=== PATIENT | male | born 1970 | race Caucasian/White ===

== ENCOUNTER 2016-12-07 13:52 | Emergency (ER) | payer BC ==
[2016-12-07 15:19] VITALS: BP 122/80
[2016-12-07] MEDS ORDERED: Naproxen TAB* 250 MG PO ONE (15:57)
--- NOTE | 2016-12-07 16:06 | UC ---
Upper Extremity HPI - HPI Summary HPI Summary: 46 male presents with complaints of right shoulder pain that began 3 days ago after an injury of falling on outstretched hands forward. Patient has had limited ROM. Has not taken any medications or applied ice/heat. Denies numbness and tingling. Did not hit head, no other complaints or injuries. Already has some limited ROM due to scleroderma however has been much worse with right shoulder since injury. Patient denies edema and bruising. Patient is right handed. Denies chest pain and SOB. - History of Current Complaint Chief Complaint: UCUpperExtremity Stated Complaint: RIGHT SHOULDER INJURY/PAIN Time Seen by Provider: 12/07/16 15:37 Hx Obtained From: Patient Onset/Duration: Sudden Onset, Lasting Days - 3, Still Present Severity Initially: Mild Severity Currently: Mild Pain Intensity: 4 Pain Scale Used: 0-10 Numeric Location Of Pain: Is Discrete @ - right shoulder both anterior and posterior Character: Sharp, Aching Aggravating Factor(s): Movement Alleviating Factor(s): Nothing Associated Signs And Symptoms: Positive: Negative Related History: Dominant Hand Right - Allergies/Home Medications Allergies/Adverse Reactions: Allergies Allergy/AdvReac Type Severity Reaction Status Date / Time Hydrocortisone Allergy Swelling Verified 12/07/16 15:19 PMH/Surg Hx/FS Hx/Imm Hx - Additional Past Medical History Additional PMH: PMH significant for scleroderma Cardiovascular History: Hypertension - Surgical History Surgical History: Yes Surgery Procedure, Year, and Place: spleen removed, appy, left knee,back, left hand , right ankle - Family History Known Family History: Positive: Hypertension - Social History Alcohol Use: Weekly Substance Use Type: None Smoking Status (MU): Never Smoked Tobacco - Immunization History Vaccination Up to Date: Yes Review of Systems Constitutional: Negative Skin: Negative Respiratory: Negative Cardiovascular: Negative Neurovascular: Negative Musculoskeletal: Arthralgia, Decreased ROM - right shoulder, Myalgia Neurological: Negative All Other Systems Reviewed And Are Negative: Yes Physical Exam Triage Information Reviewed: Yes Appearance: Well-Appearing, No Pain Distress, Well-Nourished Vital Signs: Initial Vital Signs Temp 98.7 F 12/07/16 15:06 Pulse 104 12/07/16 15:06 Resp 16 12/07/16 15:06 BP 122/80 12/07/16 15:06 Pulse Ox 99 12/07/16 15:06 Vital Signs Reviewed: Yes Eyes: Positive: Conjunctiva Clear ENT: Positive: Hearing grossly normal Neck: Positive: Supple, Nontender Respiratory: Positive: Chest non-tender, Lungs clear, Normal breath sounds, No respiratory distress, No accessory muscle use. Negative: Respiratory distress, Decreased breath sounds, Crackles, Rhonchi, Wheezing Cardiovascular: Positive: RRR, No Murmur, Pulses Normal - 2+ radial b/l, Brisk Capillary Refill - >2sec Musculoskeletal: Positive: Strength Intact, No Edema, ROM Limited @ - with flexion/extension abduction/adduction. Has some ROM however not full. ~ 45degrees. better with passive ROM. No obvious signs of deformity, bruising, edema, crepitus or step off. Drop can test and yergasons postive Neurological: Positive: Alert - sensation intact, Muscle Tone Normal Psychological Exam: Normal Skin Exam: Normal Upper Extremity Course/Dx - Course Course Of Treatment: patient educated on shoulder pain and possible injuries/ etiologies. no concern for fracture or disclocation so no x-ray obtained. Acute injury. NSAID's and rest. Ice. Given sling for more comfort and naproxen while in office. Follow up with PCP. Aware of worsening signs and symptoms. - Differential Dx/Diagnosis Differential Diagnosis/HQI/PQRI: Arthritis, Strain, Sprain Provider Diagnoses: right shoulder pain/injury Discharge - Discharge Plan Condition: Stable Disposition: HOME Patient Education Materials: Shoulder Pain (ED) Additional Instructions: Take Aleve over the counter with food for the next 3 days as directed. Rest and ice shoulder. Make an appointment with your PCP for further imaging and evaluation within the next week. If symptoms worsen or new symptoms develop please seek medical attention promptly.
== END 2016-12-07 16:14 | disposition home or self-care (01) ==
LOC: UCCORT 13:52
DX: S49.91XA Unspecified injury of right shoulder and upper arm, initial encounter (principal); W19.XXXA Unspecified fall, initial encounter; Y93.9 Activity, unspecified; Y92.9 Unspecified place or not applicable; I10 Essential (primary) hypertension; M34.9 Systemic sclerosis, unspecified; Z90.81 Acquired absence of spleen
CPT/HCPCS: 99213; A9270-GY; G0463

== ENCOUNTER 2017-03-06 15:37 | Emergency (ER) | payer BC ==
--- NOTE | 2017-03-06 16:36 | UC ---
Skin Complaint HPI - HPI Summary HPI Summary: 5 cm red warm tender area on rle with scabbing in the center--- - History of Current Complaint Time Seen by Provider: 03/06/17 16:28 Stated Complaint: RIGHT LEG SKIN COMPLAINT Hx Obtained From: Patient Onset/Duration: Sudden Onset, Lasting Days Timing: Constant Onset Severity: Mild Current Severity: Moderate Location: Discrete Character: Redness Aggravating Factor(s): Nothing Alleviating Factor(s): Nothing Associated Signs & Symptoms: Positive: Negative Related History: Trauma - Allergy/Home Medications Allergies/Adverse Reactions: Allergies Allergy/AdvReac Type Severity Reaction Status Date / Time Hydrocortisone Allergy Swelling Verified 03/06/17 16:36 Home Medications: Home Medications Lisinopril TAB* [Prinivil TAB*] 10 mg PO DAILY 03/06/17 [History Confirmed 03/06] Review of Systems Constitutional: Negative Skin: Other - 5cm of erythema with center scabbing wound began after a walk in the [place] Eyes: Negative ENT: Negative Respiratory: Negative Cardiovascular: Negative Gastrointestinal: Negative Genitourinary: Negative Motor: Negative Neurovascular: Negative Musculoskeletal: Negative Neurological: Negative Psychological: Negative Is Patient Immunocompromised?: No All Other Systems Reviewed And Are Negative: Yes PMH/Surg Hx/FS Hx/Imm Hx Previously Healthy: Yes Cardiovascular History: Hypertension GI/ History: Gastroesophageal Reflux - Surgical History Surgical History: Yes Surgery Procedure, Year, and Place: spleen removed, appy, left knee,back, left hand , right ankle - Family History Known Family History: Positive: Hypertension - Social History Occupation: Employed Full-time Lives: With Family Alcohol Use: Weekly Substance Use Type: None Smoking Status (MU): Never Smoked Tobacco - Immunization History Vaccination Up to Date: Yes Physical Exam Triage Information Reviewed: Yes Appearance: Well-Appearing, No Pain Distress, Well-Nourished Vital Signs Reviewed: Yes Eye Exam: Normal Eyes: Positive: Conjunctiva Clear ENT Exam: Normal ENT: Positive: Normal ENT inspection, Hearing grossly normal. Negative: Nasal congestion, Nasal drainage, Trismus, Muffled/hoarse voice Dental Exam: Normal Neck exam: Normal Neck: Positive: Supple, Nontender, No Lymphadenopathy Respiratory Exam: Normal Respiratory: Positive: Chest non-tender, No respiratory distress, No accessory muscle use Cardiovascular Exam: Normal Cardiovascular: Positive: RRR, Pulses Normal, Brisk Capillary Refill Musculoskeletal Exam: Normal Musculoskeletal: Positive: Strength Intact, ROM Intact, No Edema Neurological Exam: Normal Neurological: Positive: Alert, Muscle Tone Normal Psychological Exam: Normal Skin: Positive: Other - erythema as described Course/Dx - Course Course Of Treatment: update tetanus, warm compress, antibiodic, follow with pcp prn - Differential Diagnoses - Skin Complaint Differential Diagnoses: Abscess, Cellulitis, Contact Dermatitis, Impetigo, Local Allergic Reaction - Diagnoses Provider Diagnoses: cellulitis RLE, Tetanus update Discharge - Discharge Plan Condition: Stable Disposition: HOME Prescriptions: Sulfamethox/Trimethoprim DS* [Bactrim DS 800/160 TAB*] 1 tab PO BID #20 tab Patient Education Materials: Diphtheria/Acellular Pertussis/Tetanus Booster Vaccine (By injection), Wound Infection (ED), Warm Compress or Soak (ED) Referrals: Celestino Phoenix MD [Primary Care Provider] - If Needed
[2017-03-06] MEDS ORDERED: Tetan/Diph/Pertus SYR(Tdap)* 0.5 ML SYR(BOOSTRIX) use SYR IM ONE (16:39)
[2017-03-06 16:41] VITALS: BP 115/83
== END 2017-03-06 16:51 | disposition home or self-care (01) ==
LOC: UCCORT 15:37
DX: L03.115 Cellulitis of right lower limb (principal); Z23 Encounter for immunization; I10 Essential (primary) hypertension; K21.9 Gastro-esophageal reflux disease without esophagitis; Z90.81 Acquired absence of spleen
CPT/HCPCS: 90471; 90715; 99212; G0463

== ENCOUNTER 2017-07-16 14:45 | Emergency (ER) | payer BC ==
[2017-07-16 17:12] VITALS: BP 106/86
--- NOTE | 2017-07-16 17:42 | UC ---
Ear Complaint HPI - HPI Summary HPI Summary: Pt presents with c/o bilateral ear discomfort. Pt states that he nhas over production of ear wax and is requesting ear wax removal at today's visit - History of Current Complaint Chief Complaint: UCEar Stated Complaint: BILATERAL EAR PAIN Time Seen by Provider: 07/16/17 16:52 Hx Obtained From: Patient Onset/Duration: Gradual Onset, Lasting Days, Still Present Severity Initially: Mild Severity Currently: Mild Pain Intensity: 0 Associated Signs/Symptoms: Positive: Hearing Loss, Foreign Body Sensation - Allergies/Home Medications Allergies/Adverse Reactions: Allergies Allergy/AdvReac Type Severity Reaction Status Date / Time Hydrocortisone Allergy Swelling Verified 07/16/17 17:12 PMH/Surg Hx/FS Hx/Imm Hx Previously Healthy: Yes - Surgical History Surgical History: Yes Surgery Procedure, Year, and Place: spleen removed, appy, left knee,back, left hand , right ankle - Family History Known Family History: Positive: Hypertension - Social History Occupation: Employed Full-time Lives: With Family Alcohol Use: Weekly Alcohol Amount: 2 times a week Substance Use Type: None Smoking Status (MU): Never Smoked Tobacco Have You Smoked in the Last Year: No - Immunization History Most Recent Influenza Vaccination: Not the 2016/2017 Season Most Recent Tetanus Shot: Unknown Vaccination Up to Date: Yes Review of Systems Constitutional: Negative Skin: Negative Eyes: Negative ENT: Ear Ache, Other - hearing loss Respiratory: Negative Cardiovascular: Negative Gastrointestinal: Negative Genitourinary: Negative Motor: Negative Neurovascular: Negative Musculoskeletal: Negative Neurological: Negative Psychological: Negative Is Patient Immunocompromised?: No All Other Systems Reviewed And Are Negative: Yes Physical Exam Triage Information Reviewed: Yes Appearance: Well-Appearing Vital Signs: Initial Vital Signs Temp 98.7 F 07/16/17 17:03 Pulse 89 07/16/17 17:03 Resp 16 07/16/17 17:03 BP 106/86 07/16/17 17:03 Pulse Ox 99 07/16/17 17:03 Vital Signs Reviewed: Yes Eye Exam: Normal ENT Exam: Other ENT: Positive: Other - cerumen bialteral ear canals Dental Exam: Normal Neck exam: Normal Respiratory: Positive: No respiratory distress Musculoskeletal Exam: Normal Neurological Exam: Normal Psychological Exam: Normal Skin Exam: Normal Ear Complaint Course/Dx - Differential Dx/Diagnosis Differential Diagnosis/HQI/PQRI: Cerumen Impaction Provider Diagnoses: cerumen impaction bilateral. cerumen removal Discharge - Discharge Plan Condition: Stable Disposition: HOME Patient Education Materials: Cerumen Impaction (ED) Referrals: Celestino Phoenix MD [Primary Care Provider] - If Needed
== END 2017-07-16 17:50 | disposition home or self-care (01) ==
LOC: UCCORT 14:45
DX: H61.23 Impacted cerumen, bilateral (principal); Z90.81 Acquired absence of spleen; Z88.8 Allergy status to other drugs, medicaments and biological substances
CPT/HCPCS: 99213; G0463

== ENCOUNTER 2017-09-01 13:25 | Inpatient (IN) | payer BC ==
--- NOTE | 2017-09-01 15:43 | RAD ---
INDICATION: Flank pain COMPARISON: July 17, 2014 TECHNIQUE: PA and lateral dual-energy views were obtained. FINDINGS: Bones/Soft Tissues: There are no acute bony findings. Cardiomediastinal: The cardiomediastinal silhouette is normal enlarged for depth of inspiration. Lungs: Examination is expiratory with vascular crowding. There is bibasilar atelectasis. Pleura: There are no pleural effusions. Other: None IMPRESSION: EXPIRATORY EXAMINATION WITH BASILAR ATELECTASIS. SUGGEST FOLLOW-UP IF THERE ARE PERSISTENT CHEST COMPLAINTS.
[2017-09-01 16:13] LABS: INR 1.18 (0.77-1.02)
[2017-09-01 16:32] LABS: ABS Basophils 0.1 10^3/ul (0-0.2); ABS Eosinophils 0 10^3/ul (0-0.6); ABS Lymphocytes 1.9 10^3/ul (1.0-4.8); ABS Monocytes 1.7 10^3/ul (0-0.8); ABS Nucleated RBC 0 10^3/ul; Eosinophil % 0.1 % (0-6); Hematocrit 43 % (42-52); Hemoglobin 14.1 g/dl (14.0-18.0); Lymphocyte % 11.6 % (25-47); Mean Corpuscular HGB Conc 33 g/dl (31-36); Mean Corpuscular Hemoglobin 26 pg (27-31); Mean Corpuscular Volume 78 fL (80-94); Mean Platelet Volume 10 um3 (7.4-10.4); Nucleated Red Blood Cells % 0.1; Platelet Count 317 10^3/ul (150-450); Red Blood Count 5.52 10^6/ul (4.0-5.4); Red Cell Distribution Width 17 % (10.5-15); White Blood Count 16.8 10^3/ul (3.5-10.8)
[2017-09-01 16:50] LABS: EGFR Non-African American 153.2 (>60)
[2017-09-01] MEDS ORDERED: Morphine INJ* 4 MG/ML 1 ML SYRINGE (NEW SYRINGE VERSION) IV ONE (16:50)
[2017-09-01] MEDS: NS 0.9% 1000 ML* 1,000 ML BOLUS ONE ×2 (17:20→18:52)
[2017-09-01] MEDS ORDERED: Iohexol 350* (CONTRAST) 500 ML MDV IV ONE (17:23)
--- NOTE | 2017-09-01 17:34 | RAD ---
Indication: RIGHT upper quadrant pain since August 31, 2017. Post splenectomy. Comparison: October 28, 2010 CT. Technique: RIGHT upper quadrant ultrasound. Report: Appropriate direction flow documented in the portal and hepatic veins. 21.2 cm liver is normal in echogenicity. Negative for focal hepatic lesions. Equivocal slight prominence of the intrahepatic bile ducts at the LEFT hepatic lobe. 3.2 mm common bile duct. Adequately distended gallbladder is remarkable for mild wall prominence measuring up to 4.1 mm. No conspicuous shadowing stones or biliary sludge at the gallbladder. Tenderness when scanning over the gallbladder fossa consistent with sonographic Mckeon's sign. The pancreatic tail is partially obscured due to bowel gas with the visualized pancreas unremarkable. Negative for ascites. 13.2 x 4.5 x 5.3 cm RIGHT kidney is unremarkable. IMPRESSION: 1. Hepatomegaly. 2. Equivocal slight prominence of the intrahepatic bile ducts at the LEFT hepatic lobe. Negative for extrahepatic biliary dilatation. 3. Mild gallbladder wall thickening without visualized stones or biliary sludge. Negative for pericholecystic fluid. Positive for sonographic Mckeon's sign. The gallbladder wall thickening is nonspecific in setting of hepatomegaly as it may reflect sequela of hepatic disease. 4. Negative for ascites. 5. Negative for obstructive uropathy of the RIGHT kidney.
--- NOTE | 2017-09-01 18:08 | RAD ---
INDICATION: RIGHT flank pain. Post foot surgery one week ago. Scleroderma. COMPARISON: September 01, 2017 chest radiograph TECHNIQUE: Multidetector CT images were obtained from the lung apices to the upper abdomen with 81 mL Omnipaque 350 IV contrast. Pulmonary angiogram protocol. Multiplanar reformation including with maximum intensity projection. REPORT: Limited range of motion with arms in down position results in suboptimal image quality. Additionally there is respiratory motion. Mild bibasilar dependent atelectasis. Negative for alveolar consolidation concerning for pneumonia or suspicious focal pulmonary lesions. Trace RIGHT pleural effusion. Negative for pneumothorax. RIGHT paratracheal, RIGHT suprahilar, AP window, and subcarinal lymphadenopathy. Dominant node at the RIGHT paratracheal level measures 1.5 cm short axis. RIGHT suprahilar node measures 1.7 cm short axis. Dominant subcarinal node measures 1.4 cm short axis. Cardiomegaly. Negative for pericardial effusion. Normal diameter thoracic aorta with mild atherosclerotic plaque. No filling defects are identified from the main to the subsegmental pulmonary arteries to indicate presence of a pulmonary embolism. Images through the upper abdomen are remarkable for diminutive size of the spleen. Negative for suspicious thoracic osseous lesions. Multilevel predominant mild thoracic degenerative spondylosis. At T9-T10 prominent RIGHT anterolateral osteophytes are noted. IMPRESSION: 1. Negative for pulmonary embolism. 2. Mediastinal and RIGHT hilar lymphadenopathy. 3. Mild bibasilar subsegmental atelectasis. Trace RIGHT pleural effusion. Negative for alveolar consolidation concerning for pneumonia or presence of a suspicious focal pulmonary lesion. 4. Cardiomegaly. Negative for pericardial effusion.
[2017-09-01 19:42] LABS: Urine Appearance Clear; Urine Blood Negative (Negative); Urine Color Yellow; Urine Ketones Trace (Negative); Urine Protein 2+(100 mg/dL) (Negative); Urine Specific Gravity 1.032 (1.010-1.030); Urine Urobilinogen Negative (Negative)
[2017-09-01] MEDS ORDERED: Acetaminophen TAB* 325 MG PO PRN (22:04)
[2017-09-01] MEDS ORDERED: CMCS: Melatonin (NF) 3 MG TAB PO PRN (22:04)
[2017-09-01] MEDS ORDERED: Ondansetron INJ* 2 MG/ML VIAL IV PRN (22:04)
[2017-09-01] MEDS ORDERED: Ciprofloxacin 400MG IVPREMIX(* 400 MG/200 ML BAG IVPB ONE (23:00)
[2017-09-01] MEDS: NS 0.9% 1000 ML* 1,000 ML IV SCH (23:02)
[2017-09-01] MEDS: oxyCODONE TAB* 5 MG TAB PO PRN (23:08)
--- NOTE | 2017-09-01 23:53 | HP ---
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 He was not improving by Monday evening and decided to present for evaluation. He denies F/C, sweats, N/V , diarrhea, chest pain, SOB, palpitations, or other issues. His last bowel movement was AM, describes as normal. He continues to pass flatus. Food neither alleviates or exacerbates his pain. He has no history of similar. He denies treatment with steroids within the past year. Of note he had his spleen removed as a child 2nd trauma and doesn't recall when his last pneumonia vaccine was. PMedHx scleraderma chronic leukocytosis HTN anemia traumatic asplenia GERD Ambulatory Orders Nursing to reconcile. 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 [place]; full code status FamHx: Mother: alive, HTN; Father: alive, prostate CA; Sister: alive, fibromyalgia ROS: as above, otherwise reviewed and all were negative vitals: Vital Signs Temp 37.4 C 09/01/17 23:30 Pulse 120 09/01/17 23:30 Resp 18 09/01/17 23:30 BP 132/87 09/01/17 23:30 Pulse Ox 92 09/01/17 23:30 Intake & Output 09/01/17 09/01/17 09/02/17 11:59 23:59 11:59 Intake Total 1000 Balance 1000 Weight 97.522 kg Intake: IV Fluids 1000 Constitutional: NAD, normally developed, obese white male HEENM: atraumatic; sclera/conjunctiva: anicteric/clear; hearing: clinically intact; oropharynx: clear, mucosa moist Neck: soft tissue: non-tender, no nuchal rigidity; thyroid: normal Pulmonary: clear to auscultation bilaterally, good aeration, no accessory muscle use CV: RR/RR, normal S1S2, no carotid bruit, no jugular venous distention, 2+ B DP/ PT, no edema Abdominal: soft, non-distended, non-tender, no rebound/guarding/rigidity, normoactive bowel sounds, no hepatosplenomegaly or masses, no costovertebral angle tenderness Musculoskeletal: general: grossly intact Integumental: no warmth, erythema, induration, or drainage noted of exposed skin Psychiatric orientation: AA&O to PPS affect: calm mood: cooperative eye contact: good content: reliable responses: timely insight: fair Testing: Lab Results 09/01/17 09/01/17 09/01/17 Range/Units 15:47 15:47 15:47 WBC (3.5-10.8) 10^3/ul RBC (4.0-5.4) 10^6/ul Hgb (14.0-18.0) g/dl Hct (42-52) % MCV (80-94) fL MCH (27-31) pg MCHC (31-36) g/dl RDW (10.5-15) % Plt Count (150-450) 10^3/ul MPV (7.4-10.4) um3 Neut % (Auto) (38-83) % Lymph % (Auto) (25-47) % [place] % (Auto) (0-7) % Eos % (Auto) (0-6) % Baso % (Auto) (0-2) % Absolute Neuts (auto) (1.5-7.7) 10^3/ul Absolute Lymphs (auto) (1.0-4.8) 10^3/ul Absolute Monos (auto) (0-0.8) 10^3/ul Absolute Eos (auto) (0-0.6) 10^3/ul Absolute Basos (auto) (0-0.2) 10^3/ul Absolute Nucleated RBC 10^3/ul Nucleated RBC % INR (Anticoag Therapy) 1.18 H (0.77-1.02) D-Dimer, Quantitative 791 H (Less Than 230) ng/mL Sodium 134 (133-145) mmol/L Potassium 4.3 (3.5-5.0) mmol/L Chloride 103 (101-111) mmol/L Carbon Dioxide 19 L (22-32) mmol/L Anion Gap 12 H (2-11) mmol/L BUN 11 (6-24) mg/dL Creatinine 0.57 L (0.67-1.17) mg/dL Est GFR ( Amer) 197.1 (>60) Est GFR (Non-Af Amer) 153.2 (>60) BUN/Creatinine Ratio 19.3 (8-20) Glucose 93 (70-100) mg/dL Calcium 9.9 (8.6-10.3) mg/dL Magnesium 1.8 L (1.9-2.7) mg/dL Total Bilirubin 1.60 H (0.2-1.0) mg/dL AST 24 (13-39) U/L ALT 15 (7-52) U/L Alkaline Phosphatase 154 H (34-104) U/L Troponin I 0.03 (<0.04) ng/mL C-Reactive Protein 28.57 H (< 5.00) mg/L B-Natriuretic Peptide 271 H ( - 100) pg/mL Total Protein 8.1 (6.4-8.9) g/dL Albumin 4.3 (3.2-5.2) g/dL Globulin 3.8 (2-4) g/dL Albumin/Globulin Ratio 1.1 (1-3) Amylase 24 L (29-103) U/L Lipase 30 (11.0-82.0) U/L Urine Color Urine Appearance Urine pH (5-9) Ur Specific [place] (1.010-1.030) Urine Protein (Negative) Urine Ketones (Negative) Urine Blood (Negative) Urine Nitrate (Negative) Urine Bilirubin (Negative) Urine Urobilinogen (Negative) Ur Leukocyte Esterase (Negative) Urine WBC (Auto) (Absent) Urine RBC (Auto) (Absent) Urine Bacteria (Absent) Urine Glucose (Negative) 09/01/17 09/01/17 09/01/17 Range/Units 15:47 18:17 18:55 WBC 16.8 H (3.5-10.8) 10^3/ul RBC 5.52 H (4.0-5.4) 10^6/ul Hgb 14.1 (14.0-18.0) g/dl Hct 43 (42-52) % MCV 78 L (80-94) fL MCH 26 L (27-31) pg MCHC 33 (31-36) g/dl RDW 17 H (10.5-15) % Plt Count 317 (150-450) 10^3/ul MPV 10 (7.4-10.4) um3 Neut % (Auto) 77.8 (38-83) % Lymph % (Auto) 11.6 L (25-47) % [place] % (Auto) 9.9 H (0-7) % Eos % (Auto) 0.1 (0-6) % Baso % (Auto) 0.6 (0-2) % Absolute Neuts (auto) 13.0 H (1.5-7.7) 10^3/ul Absolute Lymphs (auto) 1.9 (1.0-4.8) 10^3/ul Absolute Monos (auto) 1.7 H (0-0.8) 10^3/ul Absolute Eos (auto) 0 (0-0.6) 10^3/ul Absolute Basos (auto) 0.1 (0-0.2) 10^3/ul Absolute Nucleated RBC 0 10^3/ul Nucleated RBC % 0.1 INR (Anticoag Therapy) (0.77-1.02) D-Dimer, Quantitative (Less Than 230) ng/mL Sodium (133-145) mmol/L Potassium (3.5-5.0) mmol/L Chloride (101-111) mmol/L Carbon Dioxide (22-32) mmol/L Anion Gap (2-11) mmol/L BUN (6-24) mg/dL Creatinine (0.67-1.17) mg/dL Est GFR ( Amer) (>60) Est GFR (Non-Af Amer) (>60) BUN/Creatinine Ratio (8-20) Glucose (70-100) mg/dL Calcium (8.6-10.3) mg/dL Magnesium (1.9-2.7) mg/dL Total Bilirubin (0.2-1.0) mg/dL AST (13-39) U/L ALT (7-52) U/L Alkaline Phosphatase (34-104) U/L Troponin I 0.03 (<0.04) ng/mL C-Reactive Protein (< 5.00) mg/L B-Natriuretic Peptide ( - 100) pg/mL Total Protein (6.4-8.9) g/dL Albumin (3.2-5.2) g/dL Globulin (2-4) g/dL Albumin/Globulin Ratio (1-3) Amylase (29-103) U/L Lipase (11.0-82.0) U/L Urine Color Yellow Urine Appearance Clear Urine pH 5.0 (5-9) Ur Specific [place] 1.032 H (1.010-1.030) Urine Protein 2+(100 mg/dl) A (Negative) Urine Ketones Trace A (Negative) Urine Blood Negative (Negative) Urine Nitrate Negative (Negative) Urine Bilirubin Negative (Negative) Urine Urobilinogen Negative (Negative) Ur Leukocyte Esterase Negative (Negative) Urine WBC (Auto) Trace(0-5/hpf) (Absent) Urine RBC (Auto) Absent (Absent) Urine Bacteria Absent (Absent) Urine Glucose Negative (Negative) 09/01/17 Range/Units 21:08 WBC (3.5-10.8) 10^3/ul RBC (4.0-5.4) 10^6/ul Hgb (14.0-18.0) g/dl Hct (42-52) % MCV (80-94) fL MCH (27-31) pg MCHC (31-36) g/dl RDW (10.5-15) % Plt Count (150-450) 10^3/ul MPV (7.4-10.4) um3 Neut % (Auto) (38-83) % Lymph % (Auto) (25-47) % [place] % (Auto) (0-7) % Eos % (Auto) (0-6) % Baso % (Auto) (0-2) % Absolute Neuts (auto) (1.5-7.7) 10^3/ul Absolute Lymphs (auto) (1.0-4.8) 10^3/ul Absolute Monos (auto) (0-0.8) 10^3/ul Absolute Eos (auto) (0-0.6) 10^3/ul Absolute Basos (auto) (0-0.2) 10^3/ul Absolute Nucleated RBC 10^3/ul Nucleated RBC % INR (Anticoag Therapy) (0.77-1.02) D-Dimer, Quantitative (Less Than 230) ng/mL Sodium (133-145) mmol/L Potassium (3.5-5.0) mmol/L Chloride (101-111) mmol/L Carbon Dioxide (22-32) mmol/L Anion Gap (2-11) mmol/L BUN (6-24) mg/dL Creatinine (0.67-1.17) mg/dL Est GFR ( Amer) (>60) Est GFR (Non-Af Amer) (>60) BUN/Creatinine Ratio (8-20) Glucose (70-100) mg/dL Calcium (8.6-10.3) mg/dL Magnesium (1.9-2.7) mg/dL Total Bilirubin (0.2-1.0) mg/dL AST (13-39) U/L ALT (7-52) U/L Alkaline Phosphatase (34-104) U/L Troponin I 0.03 (<0.04) ng/mL C-Reactive Protein (< 5.00) mg/L B-Natriuretic Peptide ( - 100) pg/mL Total Protein (6.4-8.9) g/dL Albumin (3.2-5.2) g/dL Globulin (2-4) g/dL Albumin/Globulin Ratio (1-3) Amylase (29-103) U/L Lipase (11.0-82.0) U/L Urine Color Urine Appearance Urine pH (5-9) Ur Specific [place] (1.010-1.030) Urine Protein (Negative) Urine Ketones (Negative) Urine Blood (Negative) Urine Nitrate (Negative) Urine Bilirubin (Negative) Urine Urobilinogen (Negative) Ur Leukocyte Esterase (Negative) Urine WBC (Auto) (Absent) Urine RBC (Auto) (Absent) Urine Bacteria (Absent) Urine Glucose (Negative) ECG, personally reviewed: sinus 1st degree AV LBBB rate 122, occasional PVCs; no comparison CXR, personally reviewed: IMPRESSION: EXPIRATORY EXAMINATION WITH BASILAR ATELECTASIS. SUGGEST FOLLOW-UP IF THERE ARE PERSISTENT CHEST COMPLAINTS. CTA chest, personally reviewed: IMPRESSION: 1. Negative for pulmonary embolism. 2. Mediastinal and RIGHT hilar lymphadenopathy. 3. Mild bibasilar subsegmental atelectasis. Trace RIGHT pleural effusion. Negative for alveolar consolidation concerning for pneumonia or presence of a suspicious focal pulmonary lesion. 4. Cardiomegaly. Negative for pericardial effusion. US RUQ: IMPRESSION: 1. Hepatomegaly. 2. Equivocal slight prominence of the intrahepatic bile ducts at the LEFT hepatic lobe. Negative for extrahepatic biliary dilatation. 3. Mild gallbladder wall thickening without visualized stones or biliary sludge. Negative for perichole- cystic fluid. Positive for sonographic Mckeon's sign. The gallbladder wall thickening is non- specific in setting of hepatomegaly as it may reflect sequela of hepatic disease. 4. Negative for ascites. 5. Negative for obstructive uropathy of the RIGHT kidney. Impression: 47M HX active alcohol abuse presents with RUQ pain found to have ? acalculus cholecystitis and unexplained mediastinal & R hilar adenopathy DIAGNOSIS & PLAN Primary SIRS w/ RUQ pain ? acalculus cholecystitis : no steroid use w/i the past year : IV ciprofloxacin & metronidazole : blood CXs : IVFs : pain control : Suhas Salazar MD surgery consulted, will evaluate in AM : supportive care mediastinal & R hilar lyphadenopathy ? 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
[2017-09-02] MEDS: Pantoprazole IV* 40 MG IV SCH ×2 (00:48→09:51)
[2017-09-02] MEDS: metroNIDAZOLE IV 500 MG/100ML* 500 MG/100 ML BAG IVPB SCH ×3 (00:48→16:48)
[2017-09-02] MEDS ORDERED: Thiamine IV* 100 MG/ML 2 ML VIAL IM ONE (00:49)
[2017-09-02] MEDS ORDERED: LORazepam INJ* 2 MG/ML 1 ML VIAL IV PUSH SCH (01:00)
[2017-09-02] MEDS: NS 0.9% 1000 ML* 1,000 ML IV SCH ×4 (02:16→23:47)
--- NOTE | 2017-09-02 02:46 | ED ---
Rocio Millard Jason, scribed for Saba Friend MD on 09/01/17 at 1642 . Abdominal Pain/Male - HPI Summary HPI Summary: This patient is a 47 year old M presenting to [facility] accompanied by parents with a chief complaint of right upper quadrant pain and right flank pain for 3 days. The patient states that his pain intensifies when he breathes. He includes that he underwent left foot surgery 08/24/17 for scler[address] complications by Dr. Olea from [facility]. While Dr. Friend was in the room, the patients heart rate was 124 bpm, blood pressure was 117/85, and the O2 Sat was 96%. The patient rates the pain 9/10 in severity. Symptoms aggravated by nothing. Symptoms alleviated by nothing. Patient denies painful urination, hematuria, or hx kidney stones. Pt has hx scleroderma, sees Dr. Gwyn Cooper, cutter tender in [place]. Pt is s/p splenectomy due to trauma as a child. Pt still has his gallbladder, and does not recall having it evaluated in the past. - History of Current Complaint Chief Complaint: EDFlankPain Stated Complaint: FLANK PAIN Time Seen by Provider: 09/01/17 15:12 Hx Obtained From: Patient, Family/Italian Tutor - parents Onset/Duration: Gradual Onset, Lasting Days, Still Present Timing: Constant Severity Initially: Severe Severity Currently: Severe Pain Intensity: 9 Pain Scale Used: 0-10 Numeric Location: Discrete At: RUQ Radiates: Yes Radiates to: Flank - right Character: Sharp Aggravating Factor(s): Deep Breaths Alleviating Factor(s): Nothing Associated Signs And Symptoms: Negative: Fever, Cough, Chest Pain, Urinary Symptoms, Nausea, Vomiting - Allergies/Home Medications Allergies/Adverse Reactions: Allergies Allergy/AdvReac Type Severity Reaction Status Date / Time hydrocortisone Allergy Swelling Verified 09/01/17 13:27 Sulfa (Sulfonamide Allergy Rash Verified 09/01/17 13:28 Antibiotics) Home Medications: Home Medications HYDROcodone/ACETAMIN 5-325 MG* [[place]ffie 5-325 TAB*] 1 tab PO Q4H PRN 09/01/17 [ History Confirmed 09/02/17] Omeprazole CAP* [Prilosec CAP* 20 MG] 20 mg PO DAILY 09/01/17 [History Confirmed 09/02/17] PMH/Surg Hx/FS Hx/Imm Hx Previously Healthy: No Endocrine/Hematology History: Reports: Autoimmune Disease - Scleroderma Cardiovascular History: Reports: Hx Hypertension Denies: Hx Congestive Heart Failure, Hx Pacemaker/ICD, Other Cardiovascular Problems/Disorders Respiratory History: Reports: Hx Asthma Denies: Other Respiratory Problems/Disorders GI History: Denies: Other GI Disorders - Surgical History Surgery Procedure, Year, and Place: splenectomy, appy, left knee, back, left hand , right ankle, left foot Infectious Disease History: No Infectious Disease History: Denies: Traveled Outside the [place] in Last 30 Days - Family History Known Family History: Positive: Hypertension - Social History Occupation: Employed Full-time Lives: With Family Alcohol Use: Daily Substance Use Type: Reports: None Smoking Status (MU): Never Smoked Tobacco Have You Smoked in the Last Year: No Review of Systems Negative: Fever Cardiovascular: Negative Respiratory: Negative Positive: Abdominal Pain - RUQ pain, Right flank pain Genitourinary: Negative Positive: no symptoms reported Positive: Other - left foot surgery Positive: Rash - chronic on his face, pt attributes it to scleroderma Neurological: Negative Psychological: Normal All Other Systems Reviewed And Are Negative: Yes Physical Exam - Summary Physical Exam Summary: Appearance: Ill-appearing, moderate pain distress, Well-nourished, tachycardic, afebrile Skin: Warm, diffuse erythematous macular lesions on face, contracted skin on hands Head: Diffuse erythematous macular lesions on face. Eyes: Conjunctiva clear ENT: Normal inspection Neck: Supple, no nodes, no JVD. Respiratory: Lungs clear, Diminished breath sounds, no respiratory distress, no wheezes Cardio: RRR, No murmur, pulses normal, brisk capillary refill Abdomen: soft, RUQ pain with a positive [place] sign, no masses, no guarding, no rebound Bowel sounds: present Musculoskeletal: Strength Intact/ ROM intact. No calf tenderness. No edema. Contractures of extremities. Boot on left foot with dressing post surgical that wasnt unwrapped in the ED. Psychological: Normal Triage Information Reviewed: Yes Vital Signs On Initial Exam: Initial Vitals Temp Pulse Resp BP Pulse Ox 98.6 F 121 18 113/83 93 09/01/17 13:28 09/01/17 13:28 09/01/17 13:28 09/01/17 13:28 09/01/17 13:28 Vital Signs Reviewed: Yes Diagnostics - Vital Signs Vital Signs Temp Pulse Resp BP Pulse Ox 09/01/17 16:13 95 09/01/17 16:00 125 25 96 09/01/17 15:36 122 25 96 09/01/17 15:33 123/81 09/01/17 15:27 120 22 96 09/01/17 15:00 121 22 107/73 97 09/01/17 14:56 161 22 88 09/01/17 14:53 114/82 09/01/17 13:28 98.6 F 121 18 113/83 93 - Laboratory Lab Results: Lab Results 09/01/17 09/01/17 09/01/17 Range/Units 15:47 15:47 15:47 WBC (3.5-10.8) 10^3/ul RBC (4.0-5.4) 10^6/ul Hgb (14.0-18.0) g/dl Hct (42-52) % MCV (80-94) fL MCH (27-31) pg MCHC (31-36) g/dl RDW (10.5-15) % Plt Count (150-450) 10^3/ul MPV (7.4-10.4) um3 Neut % (Auto) (38-83) % Lymph % (Auto) (25-47) % [place] % (Auto) (0-7) % Eos % (Auto) (0-6) % Baso % (Auto) (0-2) % Absolute Neuts (auto) (1.5-7.7) 10^3/ul Absolute Lymphs (auto) (1.0-4.8) 10^3/ul Absolute Monos (auto) (0-0.8) 10^3/ul Absolute Eos (auto) (0-0.6) 10^3/ul Absolute Basos (auto) (0-0.2) 10^3/ul Absolute Nucleated RBC 10^3/ul Nucleated RBC % INR (Anticoag Therapy) 1.18 H (0.77-1.02) D-Dimer, Quantitative 791 H (Less Than 230) ng/mL Magnesium 1.8 L (1.9-2.7) mg/dL Troponin I 0.03 (<0.04) ng/mL C-Reactive Protein 28.57 H (< 5.00) mg/L B-Natriuretic Peptide 271 H ( - 100) pg/mL Amylase 24 L (29-103) U/L Lipase 30 (11.0-82.0) U/L 09/01/17 Range/Units 15:47 WBC 16.8 H (3.5-10.8) 10^3/ul RBC 5.52 H (4.0-5.4) 10^6/ul Hgb 14.1 (14.0-18.0) g/dl Hct 43 (42-52) % MCV 78 L (80-94) fL MCH 26 L (27-31) pg MCHC 33 (31-36) g/dl RDW 17 H (10.5-15) % Plt Count 317 (150-450) 10^3/ul MPV 10 (7.4-10.4) um3 Neut % (Auto) 77.8 (38-83) % Lymph % (Auto) 11.6 L (25-47) % [place] % (Auto) 9.9 H (0-7) % Eos % (Auto) 0.1 (0-6) % Baso % (Auto) 0.6 (0-2) % Absolute Neuts (auto) 13.0 H (1.5-7.7) 10^3/ul Absolute Lymphs (auto) 1.9 (1.0-4.8) 10^3/ul Absolute Monos (auto) 1.7 H (0-0.8) 10^3/ul Absolute Eos (auto) 0 (0-0.6) 10^3/ul Absolute Basos (auto) 0.1 (0-0.2) 10^3/ul Absolute Nucleated RBC 0 10^3/ul Nucleated RBC % 0.1 INR (Anticoag Therapy) (0.77-1.02) D-Dimer, Quantitative (Less Than 230) ng/mL Magnesium (1.9-2.7) mg/dL Troponin I (<0.04) ng/mL C-Reactive Protein (< 5.00) mg/L B-Natriuretic Peptide ( - 100) pg/mL Amylase (29-103) U/L Lipase (11.0-82.0) U/L Result Diagrams: 09/01/17 15:47 09/01/17 15:47 Lab Statement: Any lab studies that have been ordered have been reviewed, and results considered in the medical decision making process. - Radiology CXR Radiology Interpretation Completed By: Radiologist - CXR reveals, per radiologist, EXPIRATORY EXAMINATION WITH BASILAR ATELECTASIS. SUGGEST FOLLOW-UP IF THERE ARE PERSISTENT CHEST COMPLAINTS. ED physician has reviewed this radiology report. - CT Chest/Thorax CT Interpretation Completed By: Radiologist - Chest/Thorax CTA reveals, per radiologist, 1. Negative for pulmonary embolism. 2. Mediastinal and RIGHT hilar lymphadenopathy. 3. Mild bibasilar subsegmental atelectasis. Trace RIGHT pleural effusion. Negative for alveolar consolidation concerning for pneumonia or presence of a suspicious focal pulmonary lesion. 4. Cardiomegaly. Negative for pericardial effusion. ED physician has reviewed this radiology report. - EKG 1534 Cardiac Rate: Tachycardia EKG Rhythm: Sinus Tachycardia - [address] Segment: Non-Specific Ectopy: None EKG Interpretation: normal AVCT, prolonged IVCT with LBBB, normal QTc and left axis -54. EKG Comparison: Other - no prior to compare. - Additional Comments Diagnostic Additional Comments: Gallbladder Ultrasound reveals, per radiologist, 1. Hepatomegaly. 2. Equivocal slight prominence of the intrahepatic bile ducts at the LEFT hepatic lobe. Negative for extrahepatic biliary dilatation. 3. Mild gallbladder wall thickening without visualized stones or biliary sludge. Negative for pericholecystic fluid. Positive for sonographic Mckeon's sign. The gallbladder wall thickening is nonspecific in setting of hepatomegaly as it may reflect sequela of hepatic disease. 4. Negative for ascites. 5. Negative for obstructive uropathy of the RIGHT kidney. ED physician has reviewed this radiology report. Re-Evaluation - Re-Evaluation First Eval Re-Evaluation Time: 17:18 Change: Improved Comment: Pt condition is improved, Pain scale is at a 5/10 after morphine. Still tachycardic, fluids infusing. GB sono completed. Awaiting CTA chest. Second Eval Re-Evaluation Time: 20:30 Change: Unchanged Comment: Pain is returning. Still with +Mckeon's sign. No vomiting or fever in the ED. Discussed results of labs, US and CTA chest. Parents present with pt. Pt remains tachycardic. Pt states Dr. Cooper has followed him for elevated wbc count for quite awhile. Last wbc count he knew was 11. Pt has also seen Dr. Hines and had bone marrow evaluations. Abdominal Pain Fem Course/Dx - Course Course Of Treatment: In the ED course the patient was given IV fluids, morphine 4mg IV for pain was NPO. Pt medications reviewed this visit. Allergies noted. AT [address] Lang who recommends consult with Dr. Salazar with thickened GB chris, elevated wbc count, tachycardia, despite no gallstones or sludge. At [address] Salazar, who recommended medical admission and believies the condition is possibly acalculous cholecystitis which should be treated with antibiotics first, Cipro and Flagyl after blood cultures obtained. Pt will be admitted to medicine and surgery will consult. Assessment/Plan: Discussed results with patient. Patient will be admitted. Patient is agreeable with this plan. - Diagnoses Differential Diagnosis/HQI/PQRI: Gall Bladder Disease, Hepatitis, Pancreatitis, Pneumonia, Renal Colic, Ureteral Stone, Other - pulmonary embolus Provider Diagnoses: Right flank pain, Tachycardia, mediastinal and hilar adenopathy, Right upper quadrant pain, Scleroderma, Status post left foot surgery, SIRS (systemic inflammatory response syndrome) - Provider Notifications Discussed Care Of Patient With: Edwin Salazar Time Discussed With Above Provider: 21:00 - will consult Discharge - Discharge Plan Condition: Stable Disposition: ADMITTED TO [facility] documentation as recorded by the Rocio cain Jason accurately reflects the service I personally performed and the decisions made by , Saba Friend MD.
[2017-09-02] MEDS: oxyCODONE TAB* 5 MG TAB PO PRN ×3 (03:27→23:46)
[2017-09-02 05:45] LABS: ABS Basophils 0.1 10^3/ul (0-0.2); ABS Eosinophils 0.1 10^3/ul (0-0.6); ABS Lymphocytes 2.3 10^3/ul (1.0-4.8); ABS Monocytes 1.5 10^3/ul (0-0.8); ABS Neutrophils 7.8 10^3/ul (1.5-7.7); ABS Nucleated RBC 0 10^3/ul; Eosinophil % 0.9 % (0-6); Hematocrit 40 % (42-52); Lymphocyte % 19.4 % (25-47); Mean Corpuscular HGB Conc 32 g/dl (31-36); Mean Corpuscular Hemoglobin 26 pg (27-31); Mean Corpuscular Volume 79 fL (80-94); Mean Platelet Volume 9 um3 (7.4-10.4); Nucleated Red Blood Cells % 0; Platelet Count 270 10^3/ul (150-450); Red Blood Count 5.09 10^6/ul (4.0-5.4); Red Cell Distribution Width 18 % (10.5-15); White Blood Count 11.8 10^3/ul (3.5-10.8)
[2017-09-02 06:02] LABS: EGFR Non-African American 144.4 (>60)
[2017-09-02] MEDS: Folic Acid TAB* 1 MG PO SCH (09:02)
[2017-09-02] MEDS: Multivitamins/Minerals TAB PO SCH (09:02)
[2017-09-02] MEDS: Docusate CAP* 100 MG PO SCH ×2 (09:02→21:38)
[2017-09-02] MEDS: Thiamine TAB* 100 MG TAB PO SCH (09:03)
--- NOTE | 2017-09-02 11:05 | PN ---
Subjective Date of Service: 09/02/17 Interval History: Patient seen and examined at bedside. Denies fever, chills, shortness of breath , chest discomfort, N/V/D. Pt states that he continues to have a right flank discomfort. Family History: Unchanged from Admission Social History: Unchanged from Admission Past Medical History: Unchanged from Admission Objective Active Medications: Acetaminophen (Tylenol Tab*) 650 mg PO Q6H PRN Reason: FEVER/PAIN Docusate Sodium (Colace Cap*) 200 mg PO BID NATALIE Folic Acid (Folvite Tab*) 1 mg PO DAILY NATALIE Hydromorphone HCl (Dilaudid Inj*) 0.5 mg IV Q4H PRN Reason: PAIN Ciprofloxacin 400 mg/ Dextrose 200 mls @ 200 mls/hr IVPB Q12H NATALIE Metronidazole/Sodium Chloride (Flagyl 500 Mg Ivpb*) 500 mg in 100 mls @ 100 mls /hr IVPB Q8H NATALIE Sodium Chloride (Ns 0.9% 1000 Ml*) 1,000 mls @ 125 mls/hr IV PER RATE NATALIE Lorazepam (Ativan Inj*) 0 - 6 mg IV PUSH .PER [facility]OL [facility] Melatonin (Melatonin (Nf)) 3 mg PO BEDTIME PRN; Protocol Reason: Sleep Multivitamins/Minerals (Theragran/Minerals Tab*) 1 tab PO DAILY NATALIE Ondansetron HCl (Zofran Inj*) 4 mg IV Q6H PRN Reason: NAUSEA Oxycodone HCl (Roxycodone Tab*) 5 mg PO Q4H PRN Reason: PAIN Pantoprazole Sodium (Protonix Iv*) 40 mg IV DAILY [facility] Thiamine HCl (Vitamin B-1 Tab*) 100 mg PO DAILY [facility] Vital Signs - 8 hr 09/02/17 09/02/17 09/02/17 03:23 03:27 04:53 Temperature 98.4 F Pulse Rate 102 97 Respiratory 20 20 Rate Blood Pressure 122/90 116/86 (mmHg) O2 Sat by Pulse 95 93 Oximetry 09/02/17 09/02/17 09/02/17 06:13 08:06 08:56 Temperature 97.9 F Pulse Rate 95 Respiratory 18 18 18 Rate Blood Pressure 128/86 (mmHg) O2 Sat by Pulse 93 Oximetry Oxygen Devices in Use Now: None Appearance: NAD, sitting up on the side of the bed Ears/Nose/Mouth/Throat: Mucous Membranes Moist Respiratory: Symmetrical Chest Expansion and Respiratory Effort, Clear to Auscultation Cardiovascular: NL Sounds; No Murmurs; No JVD, RRR Abdominal: NL Sounds; No Tenderness; No Distention, - - Tenderness to right flank Extremities: No Edema Skin: - - Splin to left LE intact Neurological: Alert and Oriented x 3, NL Muscle Strength and Tone Lines/Tubes/Other Access: Clean, Dry and Intact Peripheral IV - site benign Nutrition: Taking PO's Result Diagrams: 09/02/17 05:26 09/02/17 05:26 Additional Lab and Data: Diagnostic Imagin09/01/17 - CHEST PA & LAT 2 VWS, IMPRESSION: EXPIRATORY EXAMINATION WITH BASILAR ATELECTASIS. SUGGEST FOLLOW-UP IF THERE ARE PERSISTENT CHEST COMPLAINTS. 09/01/17 - US GALL BLADDER, IMPRESSION: 1. Hepatomegaly. 2. Equivocal slight prominence of the intrahepatic bile ducts at the LEFT hepatic lobe. Negative for extrahepatic biliary dilatation. 3. Mild gallbladder wall thickening without visualized stones or biliary sludge. Negative for pericholecystic fluid. Positive for sonographic Mckeon's sign. The gallbladder wall thickening is nonspecific in setting of hepatomegaly as it may reflect sequela of hepatic disease. 4. Negative for ascites. 5. Negative for obstructive uropathy of the RIGHT kidney. 09/01/17 - CTA CHEST, IMPRESSION: 1. Negative for pulmonary embolism. 2. Mediastinal and RIGHT hilar lymphadenopathy. 3. Mild bibasilar subsegmental atelectasis. Trace RIGHT pleural effusion. Negative for alveolar consolidation concerning for pneumonia or presence of a suspicious focal pulmonary lesion. 4. Cardiomegaly. Negative for pericardial effusion. Assess/Plan/Problems-Billing Assessment: Mr. Rehman is a 47 yo male with PMH significant for scleraderma, chronic leukocytosis, HTN, anemia, GERD, s/p splenectomy, and ETOH abuse who presented to the emergency room with complaints of right upper abdominal pain. - Patient Problems (1) RUQ abdominal pain Code(s): R10.11 - RIGHT UPPER QUADRANT PAIN SNOMED Code(s): 316687827 Comment: - Meeting SIRS criteria on admission with tachycardia, leukocytosis, tachypnea - Continues to have tachycardia and leukocytosis. Tachypnea has resolved - Afebrile - General Surgery consut, input appreciated - HIDA scan, read pending - Blood cultures pending - Suspect possible acalculus cholecystitis - Continue Cipro and Flagyl, supportive care, IVFs and pain medication (2) Mediastinal lymphadenopathy Code(s): R59.0 - LOCALIZED ENLARGED LYMPH NODES SNOMED Code(s): 85577506 Comment: - Unclear etiology, ? neoplasm vs infection - Will need to follow up with PCP at discharge (3) Atelectasis Comment: - Encourage IS use (4) Alcohol abuse Code(s): F10.10 - ALCOHOL ABUSE, UNCOMPLICATED SNOMED Code(s): 92333057 Comment: - WAM score 1-2 - Continue WAM protocol for now (5) Leukocytosis Code(s): D72.829 - ELEVATED WHITE BLOOD CELL COUNT, UNSPECIFIED SNOMED Code(s) : 562762852 Comment: - Chronic - Continue to monitor (6) HTN (hypertension) Code(s): I10 - ESSENTIAL (PRIMARY) HYPERTENSION SNOMED Code(s): 83088552 Comment: - SBP 110-130's - Continue Lisinopril (7) GERD (gastroesophageal reflux disease) Code(s): K21.9 - GASTRO-ESOPHAGEAL REFLUX DISEASE WITHOUT ESOPHAGITIS SNOMED Code(s): 406200355 Comment: - Continue omeprazole (8) Hx of splenectomy Code(s): Z90.81 - ACQUIRED ABSENCE OF SPLEEN SNOMED Code(s): 540465693 Comment: - Noted (9) Scleroderma Code(s): M34.9 - SYSTEMIC SCLEROSIS, UNSPECIFIED SNOMED Code(s): 27768583 Comment: - History noted (10) DVT prophylaxis Code(s): UWF6811 - SNOMED Code(s): 260275391 Comment: - SQ heparin and SCDs (11) Full code status Code(s): Z78.9 - OTHER SPECIFIED HEALTH STATUS SNOMED Code(s): 075058729 Status and Disposition: Inpatient. Discharge to home when medically stable.
--- NOTE | 2017-09-02 11:27 | RAD ---
INDICATION: 2 days right upper quadrant pain COMPARISON: Ultrasound dated September 01, 2017 that demonstrated positive sonographic Mckeon sign and mildly thickened gallbladder chris TECHNIQUE: Following the administration of 6.2 millicuries of technetium 99m mebrofenin, serial, static, anterior images of the abdomen were obtained at 5 minute increments for a period of one hour. FINDINGS: There is prompt uptake of radiopharmaceutical within the liver indicating normal hepatic function. There is prompt visualization of the gallbladder and small bowel indicating patency of the cystic and common ducts. IMPRESSION: Normal examination. No scintigraphic evidence of acute cholecystitis or cystic duct obstruction.
[2017-09-02] MEDS: Ciprofloxacin IV(*) 400 MG in D5W 250 ML BAG* 160 ML IVPB SCH ×2 (12:37→23:28)
--- NOTE | 2017-09-02 15:04 | CONS ---
CC: Dr. Phoenix; Kg Ferreira MD CONSULTATION REPORT: DATE OF CONSULT: 09/02/17 CHIEF COMPLAINT: Abdominal pain. HISTORY OF PRESENT ILLNESS: The patient is a 47-year-old male with a history of scleroderma and poss ible alcohol abuse who had recent orthopedic surgery about 10 days ago, now presents with about 3 day s of right upper quadrant pain. By history, he has never had right upper quadrant pain before. He h as never had problems with gallbladder or biliary disease. Usually his appetite and bowel function a nd digestion are good. With the recent series of events, he has had some belching. No nausea. No vo miting. The pain does not really radiate through to his back. He has not had any diarrhea. No fowler ge in the color of the stool or urine. No fever or chills. No recent accident, injury, or trauma. PAST SURGICAL HISTORY: Includes: 1. Splenectomy for trauma at age 6. 2. Appendectomy in the distant past. PHYSICAL EXAMINATION: General: He is a well-developed, well-nourished appearing individual. He jimenes s not appear acutely ill. He does not appear jaundiced. Lungs: Breathing is easy and unlabored. He art: Regular. Abdomen: Somewhat obese, soft. He has an upper midline incision which is somewhat hy pertrophic, but otherwise well healed. No obvious hernia. He has right lower quadrant incision cons istent with the history of appendectomy and consistent with history of splenectomy. He is tender in the right paraumbilical and right subcostal region. Trace Mckeon sign. No guarding. No rebound tend erness. No palpable masses. No hernias. Bowel sounds are relatively normal. DIAGNOSTIC STUDIES/LAB DATA: Laboratory studies reveal white blood count elevated at 16,000 on arriv al, now down to 11,000. He is slightly microcytic and has a trace left shift. He has a trace elevat ion of the bilirubin. Transaminases are normal. C-reactive protein is slightly elevated. Amylase a nd lipase are not elevated. He has had an ultrasound of the gallbladder which shows no evidence of c holelithiasis and has no pericholecystic fluid and there is some tenderness in scanning over the gall bladder. The CT scan of the chest does show mediastinal adenopathy, but no evidence of anything cont ributing to the pain. IMPRESSION: This is a 47-year-old male with right upper quadrant pain of approximately 3 days' durat ion which has been somewhat waxing and waning, although worse in the last 24 hours. This is potentia lly consistent with acalculous cholecystitis and I think it is reasonable to get in a nuclear biliary scan to assess his biliary function. He should be continued on intravenous antibiotics and I will d efer to Medicine regarding his anemia and adenopathy and alcohol intake. We will continue to follow h im along with you during this hospitalization. [id number]/[facility] #: [id number]
[2017-09-03] MEDS: metroNIDAZOLE IV 500 MG/100ML* 500 MG/100 ML BAG IVPB SCH ×3 (01:25→16:51)
[2017-09-03 05:32] LABS: ABS Basophils 0.1 10^3/ul (0-0.2); ABS Eosinophils 0 10^3/ul (0-0.6); ABS Lymphocytes 2.1 10^3/ul (1.0-4.8); ABS Monocytes 1.4 10^3/ul (0-0.8); ABS Neutrophils 10.4 10^3/ul (1.5-7.7); ABS Nucleated RBC 0 10^3/ul; Eosinophil % 0.3 % (0-6); Hematocrit 41 % (42-52); Hemoglobin 13.1 g/dl (14.0-18.0); Lymphocyte % 14.9 % (25-47); Mean Corpuscular HGB Conc 32 g/dl (31-36); Mean Corpuscular Hemoglobin 26 pg (27-31); Mean Corpuscular Volume 80 fL (80-94); Mean Platelet Volume 9 um3 (7.4-10.4); Nucleated Red Blood Cells % 0; Platelet Count 277 10^3/ul (150-450); Red Blood Count 5.12 10^6/ul (4.0-5.4); Red Cell Distribution Width 18 % (10.5-15); White Blood Count 14.1 10^3/ul (3.5-10.8)
[2017-09-03 05:51] LABS: EGFR Non-African American 153.2 (>60)
[2017-09-03] MEDS: HYDROmorphone INJ* 2 MG/ML CARPUJECT SYRINGE IV PRN ×2 (06:28→12:24)
--- NOTE | 2017-09-03 08:09 | PN ---
Subjective Date of Service: 09/03/17 Interval History: Patient seen and examined at bedside. Denies fever, chills, N/V/D. Pt continues to have right upper abdominal and right flank discomfort. Pt states that he has been having a sternal chest discomfort since yesterday that is worse when laying back and is improved if he sits up on the side of the bed. He also reports some shortness of breath, that is increased over his baseline. Pt states that he doesn't drink alcohol daily, but 2-3 days a week and a significant amount at those times. Patient had a surgery on his left foot in [place] on [address] Olea. Family History: Unchanged from Admission Social History: Unchanged from Admission Past Medical History: Unchanged from Admission Objective Active Medications: Acetaminophen (Tylenol Tab*) 650 mg PO Q6H PRN Reason: FEVER/PAIN Docusate Sodium (Colace Cap*) 200 mg PO BID NATALIE Folic Acid (Folvite Tab*) 1 mg PO DAILY NATALIE Hydromorphone HCl (Dilaudid Inj*) 0.5 mg IV Q4H PRN Reason: PAIN Ciprofloxacin 400 mg/ Dextrose 200 mls @ 200 mls/hr IVPB Q12H NATALIE Metronidazole/Sodium Chloride (Flagyl 500 Mg Ivpb*) 500 mg in 100 mls @ 100 mls /hr IVPB Q8H NATALIE Sodium Chloride (Ns 0.9% 1000 Ml*) 1,000 mls @ 125 mls/hr IV PER RATE NATALIE Lorazepam (Ativan Inj*) 0 - 6 mg IV PUSH .PER [facility] PROTOCOL [facility] Melatonin (Melatonin (Nf)) 3 mg PO BEDTIME PRN; Protocol Reason: Sleep Multivitamins/Minerals (Theragran/Minerals Tab*) 1 tab PO DAILY NATALIE Ondansetron HCl (Zofran Inj*) 4 mg IV Q6H PRN Reason: NAUSEA Oxycodone HCl (Roxycodone Tab*) 5 mg PO Q4H PRN Reason: PAIN Pantoprazole Sodium (Protonix Iv*) 40 mg IV DAILY NATALIE Thiamine HCl (Vitamin B-1 Tab*) 100 mg PO DAILY NATALIE Vital Signs - 8 hr 09/03/17 09/03/17 09/03/17 03:43 04:06 06:28 Pulse Rate 103 Respiratory 20 18 20 Rate Blood Pressure 126/94 (mmHg) O2 Sat by Pulse 94 Oximetry Oxygen Devices in Use Now: None Appearance: NAD, laying in bed Respiratory: Symmetrical Chest Expansion and Respiratory Effort, Clear to Auscultation Cardiovascular: NL Sounds; No Murmurs; No JVD, RRR Abdominal: NL Sounds; No Tenderness; No Distention Skin: - - Splint/dressing to left foot dry and intact, small amount of old bloody drainage noted near toes. Neurological: Alert and Oriented x 3, NL Muscle Strength and Tone Lines/Tubes/Other Access: Clean, Dry and Intact Peripheral IV - site benign Result Diagrams: 09/03/17 05:17 09/03/17 05:17 Additional Lab and Data: Diagnostic Imagin09/01/17 - CHEST PA & LAT 2 VWS, IMPRESSION: EXPIRATORY EXAMINATION WITH BASILAR ATELECTASIS. SUGGEST FOLLOW-UP IF THERE ARE PERSISTENT CHEST COMPLAINTS. 09/01/17 - US GALL BLADDER, IMPRESSION: 1. Hepatomegaly. 2. Equivocal slight prominence of the intrahepatic bile ducts at the LEFT hepatic lobe. Negative for extrahepatic biliary dilatation. 3. Mild gallbladder wall thickening without visualized stones or biliary sludge. Negative for pericholecystic fluid. Positive for sonographic Mckeon's sign. The gallbladder wall thickening is nonspecific in setting of hepatomegaly as it may reflect sequela of hepatic disease. 4. Negative for ascites. 5. Negative for obstructive uropathy of the RIGHT kidney. 09/01/17 - CTA CHEST, IMPRESSION: 1. Negative for pulmonary embolism. 2. Mediastinal and RIGHT hilar lymphadenopathy. 3. Mild bibasilar subsegmental atelectasis. Trace RIGHT pleural effusion. Negative for alveolar consolidation concerning for pneumonia or presence of a suspicious focal pulmonary lesion. 4. Cardiomegaly. Negative for pericardial effusion. Assess/Plan/Problems-Billing Assessment: Mr. Rehman is a 47 yo male with PMH significant for scleraderma, chronic leukocytosis, HTN, anemia, GERD, s/p splenectomy, and ETOH abuse who presented to the emergency room with complaints of right upper abdominal pain. - Patient Problems (1) RUQ abdominal pain Code(s): R10.11 - RIGHT UPPER QUADRANT PAIN SNOMED Code(s): 476296627 Comment: - Meeting SIRS criteria on admission with tachycardia, leukocytosis, tachypnea - Continues to have tachycardia and leukocytosis. Tachypnea has resolved - Afebrile - General Surgery consut, input appreciated - HIDA scan, no significant findings - Blood cultures, no growth day 1 - Suspect possible acalculus cholecystitis vs cholangitis - Continue Cipro and Flagyl, supportive care, IVFs and pain medication (2) Chest pain Code(s): R07.9 - CHEST PAIN, UNSPECIFIED SNOMED Code(s): 01366173 Comment: - Improved when sitting up, Pt describes pain as a tightness. With associated mild shortness of breath - No change in pain with palpation - EKG - Sinus tach with 1st degree AVB, LBBB. No old EKGs for comparision ( prior to 09/01) - Differential dx - Pleurisy vs pericarditis vs cardiac - Will add a troponin to this AM's labs and get an echo - Will get a chemical stress test in the AM (3) Status post left foot surgery Code(s): Z98.890 - OTHER SPECIFIED POSTPROCEDURAL STATES SNOMED Code(s): 977727139 Comment: - Now with leukocytosis (? acute on chronic vs chronic) and mild elevated CRP - Obtain records from [place] - S/P surgery with Dr. Rd Olea on August 24 - Will add CRP to this AM's labs - Will ask ortho to see the patient to evaluate the surgical site - Follow-up with Dr. Olea as previously planned (4) Mediastinal lymphadenopathy Code(s): R59.0 - LOCALIZED ENLARGED LYMPH NODES SNOMED Code(s): 42623868 Comment: - Unclear etiology, ? neoplasm vs infection - Will need to follow up with PCP at discharge (5) Atelectasis Comment: - Encourage IS use (6) Alcohol abuse Code(s): F10.10 - ALCOHOL ABUSE, UNCOMPLICATED SNOMED Code(s): 40768135 Comment: - WAM score 1-4 - Continue WAM protocol for now (7) Leukocytosis Code(s): D72.829 - ELEVATED WHITE BLOOD CELL COUNT, UNSPECIFIED SNOMED Code(s) : 516797974 Comment: - Chronic - Continue to monitor (8) HTN (hypertension) Code(s): I10 - ESSENTIAL (PRIMARY) HYPERTENSION SNOMED Code(s): 51592526 Comment: - SBP 110-140's - Continue Lisinopril (9) GERD (gastroesophageal reflux disease) Code(s): K21.9 - GASTRO-ESOPHAGEAL REFLUX DISEASE WITHOUT ESOPHAGITIS SNOMED Code(s): 251571730 Comment: - Continue omeprazole (10) Hx of splenectomy Code(s): Z90.81 - ACQUIRED ABSENCE OF SPLEEN SNOMED Code(s): 418093670 Comment: - Noted (11) Scleroderma Code(s): M34.9 - SYSTEMIC SCLEROSIS, UNSPECIFIED SNOMED Code(s): 27344368 Comment: - History noted (12) DVT prophylaxis Code(s): LGW1435 - SNOMED Code(s): 619994521 Comment: - SQ heparin and SCDs (13) Full code status Code(s): Z78.9 - OTHER SPECIFIED HEALTH STATUS SNOMED Code(s): 925970282 Status and Disposition: Inpatient. Discharge to home when medically stable.
[2017-09-03] MEDS: Pantoprazole IV* 40 MG IV SCH (09:27)
[2017-09-03] MEDS: NS 0.9% 1000 ML* 1,000 ML IV SCH ×2 (09:32→20:48)
[2017-09-03] MEDS: Multivitamins/Minerals TAB PO SCH (10:13)
[2017-09-03] MEDS: Folic Acid TAB* 1 MG PO SCH (10:13)
[2017-09-03] MEDS: oxyCODONE TAB* 5 MG TAB PO PRN ×3 (10:13→20:18)
[2017-09-03] MEDS: Docusate CAP* 100 MG PO SCH ×2 (10:13→20:18)
[2017-09-03] MEDS: Thiamine TAB* 100 MG TAB PO SCH (10:14)
--- NOTE | 2017-09-03 11:11 | PN ---
Progress Note - Progress Note Date of Service: 09/03/17 Note: HD#2 RUQ pain Afeb, VS ok Hungry, No N/V Voiding Pain about the same Abd drawing in machine tender helper RUQ, no rebound Labs noted HIDA--Normal flow through GB and ducts Does not seem to be cholecystitis Will start po's D/W hospitalist
[2017-09-03] MEDS: Ciprofloxacin IV(*) 400 MG in D5W 250 ML BAG* 160 ML IVPB SCH ×2 (11:18→22:50)
[2017-09-04] MEDS: metroNIDAZOLE IV 500 MG/100ML* 500 MG/100 ML BAG IVPB SCH ×2 (00:55→07:23)
--- NOTE | 2017-09-04 02:28 | CONS ---
CONSULTATION REPORT: DATE OF CONSULT: 09/03/17 REASON FOR CONSULT: Postoperative left foot wound, in the setting of leukocytosis. HISTORY OF PRESENT ILLNESS: The patient is a 47-year-old man, with scleroderma , with chronic leukocytosis, hypertension, and status post splenectomy, with recent left foot surgery in [place], [place], on approximately 08/24/17, who was admitted to [facility]'s hospitalist service on 09/01/17 with right upper quadrant pain, a question of acalculous cholecystitis, and unexplained mediastinal and right hilar adenopathy. The patient was admitted and diagnosed with SIRS, with right upper quadrant pain , question of acalculous cholecystitis. The patient was started on IV ciprofloxacin and metronidazole. Blood cultures were ordered, pain control and supportive care were provided and a General Surgery consult was made. The patient was also placed on the [facility] protocol as he admits to being a heavy drinker. General Surgery consultation was obtained with Dr. Ferreira consulting. His impression was that the patient's clinical picture was potentially consistent with acalculous cholecystitis and a nuclear biliary scan was obtained to assess biliary function. Dr. Ferreira saw the patient again today and noted that the HIDA scan had noted normal flow through the gallbladder and biliary ducts and the patient did not seem to have cholecystitis. Oral fluids were restarted and care was deferred to the hospitalist service. The patient complained of some right upper extremity as well as right flank pain and then some chest pain. Appropriate workups were done for right upper quadrant pain and chest pain. The patient had his surgery, left foot, done by Dr. Rd Olea in [place] on 08/24/17. According to the patient, he had a sesamoidectomy, removal of sesamoids, from the left great toe as well as the left 4th toe. The patient acknowledges that the incision for removal of the great toe sesamoids have been medial and the 4th toe sesamoids have been mid dorsal, as per the description of the surgeon preoperatively. A pin was also placed in the 2nd toe. The patient states that to his knowledge was uncomplicated and his postoperative course has been uncomplicated. The patient has been in a soft tissue dressing, bulky, about his left foot since the surgery. The patient has a scheduled followup with his surgeon this coming week, within the next 4 days. The patient states that he is very experienced with foot surgery, having had multiple surgeries, at least 4 or 5, and he thinks that perhaps all 10 of his toes have been operated on at one point or another for different contractures, consistent with his systemic disease of scleroderma. The patient describes no increase in pain of that left foot. He has had no complaints regarding left foot since the operation. Hospitalist service, noting an increasing and elevated CRP, which today was 62.66, as well as the leukocytosis, with a white blood cell count of 14.1, called the Orthopedics consult to rule out the left foot as a possible source of infection and increase in these labs. PAST MEDICAL HISTORY: Scleroderma, chronic leukocytosis, hypertension, anemia, traumatic asplenia, gastroesophageal reflux disease. PAST SURGICAL HISTORY: Splenectomy secondary to trauma as a child, appendectomy , lumbar spine surgery, foot surgeries x4 for hammertoe or other flexion contractures of toes, right knee surgery. MEDICATIONS: At home: 1. Lisinopril. 2. Hydrocodone p.r.n. 3. Omeprazole. ALLERGIES: HYDROCORTISONE (swelling), SULFA DRUGS (rash). SOCIAL HISTORY: The patient admits to multiple beers per week, 25 to 30 according to the history and physical note by the hospitalist service. REVIEW OF SYSTEMS: The patient does describe some right flank pain as well as some right upper quadrant abdominal pain and some chest pain about the sternum. He has mentioned shortness of breath to the hospitalist service. PHYSICAL EXAM: Temperature at 3:24 p.m. today was 97.4 degrees Fahrenheit. T- max for the last 24 hours was 98.8 degrees Fahrenheit at 11:30 a.m. this morning. At 3:24 p.m., the patient's heart rate was 112, blood pressure 129/79 , respiratory rate 22, oxygen saturation of 96% on room air. No acute distress, alert and oriented, appropriate mood and affect, appropriate dress and hygiene, well coordinated bilateral upper and lower extremities. The patient's gait was not assessed. The patient is sitting in bed, with family around him, watching [employer] basketball games. The patient has a large belly. No distention appreciated. Positive mild tenderness to palpation, right upper quadrant. A minimal tenderness to palpation of the right flank. Left foot exam reveals a soft dressing in place, bulky, about the foot. This was removed. The patient had a percutaneous pin placed to the tip of the 2nd left toe. The patient had 2 skin incisions, one about the medial aspect of the great toe at the level of the MTP joint. The other dorsally about the 4th toe MTP joint. No skin compromise. Incisions clean, dry, and intact. No drainage from the pin site. No drainage elsewhere. Mild soft tissue swelling consistent with postoperative healing. No fluctuance appreciated. No significant tenderness to palpation of soft tissues. The patient had a small area, perhaps 2 cm in length on the proximal most aspect of the patient's skin incision overlying the 4th MTP joint, where there was some skin erythema. Mild tenderness to palpation only about the skin and soft tissue in the area of erythema. I marked out the border of the erythema with a normal writing pen. No significant loss of sensation appreciated. Cap refill less than 2 seconds. ASSESSMENT: 1. Status post left foot surgery, at [facility], 08/24/17. 2. Possible mild cellulitis, small area, arianna-incisional, left foot. PLAN: 1. I marked the border of the patient's erythema as mentioned above. This will allow physicians in the future including the patient's foot surgeon, this week, to determine whether the area of erythema is kanchan or expanding and treat accordingly. 2. Applied a new dry sterile dressing, bulky, to make the foot comfortable. 3. Weightbearing instructions per the patient's operative surgeon. I would make the patient nonweightbearing. 4. The patient will follow up with his foot surgeon in [place] as planned this week. 5. With regards to the minimal amount of cellulitis, where I am seeing in a patient with this as the solitary complaint, I might consider 3 days of oral antibiotics. However, the patient is currently getting IV antibiotics, including ciprofloxacin, 400 mg IV b.i.d., which should have more than sufficient skin organism coverage. Therefore, 2 doses of that is more than enough considered the patient does not need any additional antibiotics to treat the left foot. I am signing off but I am happy to be reconsulted should there be any additional questions. [id number]/[facility] #: [id number] MTDD
[2017-09-04 04:59] LABS: ABS Basophils 0 10^3/ul (0-0.2); ABS Eosinophils 0.1 10^3/ul (0-0.6); ABS Lymphocytes 1.6 10^3/ul (1.0-4.8); ABS Monocytes 1.5 10^3/ul (0-0.8); ABS Neutrophils 9.6 10^3/ul (1.5-7.7); ABS Nucleated RBC 0 10^3/ul; Eosinophil % 0.5 % (0-6); Hematocrit 40 % (42-52); Hemoglobin 12.9 g/dl (14.0-18.0); Lymphocyte % 12.7 % (25-47); Mean Corpuscular HGB Conc 32 g/dl (31-36); Mean Corpuscular Hemoglobin 26 pg (27-31); Mean Corpuscular Volume 79 fL (80-94); Mean Platelet Volume 9 um3 (7.4-10.4); Nucleated Red Blood Cells % 0; Platelet Count 280 10^3/ul (150-450); Red Blood Count 5.05 10^6/ul (4.0-5.4); Red Cell Distribution Width 18 % (10.5-15); White Blood Count 12.8 10^3/ul (3.5-10.8)
[2017-09-04] MEDS: NS 0.9% 1000 ML* 1,000 ML IV SCH (07:09)
[2017-09-04] MEDS: Pantoprazole IV* 40 MG IV SCH (07:23)
[2017-09-04] MEDS: Docusate CAP* 100 MG PO SCH ×2 (07:23→20:20)
[2017-09-04] MEDS: Thiamine TAB* 100 MG TAB PO SCH (07:23)
[2017-09-04] MEDS: Folic Acid TAB* 1 MG PO SCH (07:23)
[2017-09-04] MEDS: Multivitamins/Minerals TAB PO SCH (07:23)
[2017-09-04] MEDS ORDERED: Perflutren Lipid Microsphere* 3 ML VIAL ONE (08:05)
--- NOTE | 2017-09-04 08:40 | PN ---
Progress Note - Progress Note Date of Service: 09/04/17 Note: Surgery Progress: S: Less RUQ abd pain. Leila full liq diet. Passing flatus, but no BM for 3-4 d. Seems to be using less narcotic. O: Vital Signs - 8 hr 09/04/17 09/04/17 09/04/17 04:07 04:08 07:18 Temperature 98.1 F 99.0 F Pulse Rate 106 100 Respiratory 16 18 18 Rate Blood Pressure 126/89 109/84 (mmHg) O2 Sat by Pulse 93 95 Oximetry Intake and Output Last 24 Hours 09/02/17 09/03/17 09/04/17 09/05/17 06:59 06:59 06:59 06:59 Intake Total 2837 3394 4919 1090 Output Total 550 1250 1750 1000 Balance 2287 2144 3169 90 Weight 215 lb Intake: IV Fluids 7 7 9 990 ABX - FLAGYL 110 NS (0.9%) 1707 1887 1919 990 IVPB 105 607 400 100 ABX - CIPROFLOXACIN 197 200 ABX - FLAGYL 105 110 200 100 NS (0.9%) 300 Oral 25 900 2490 Output: Urine 550 1250 1750 1000 Other: # Bowel Movements 0 PE: Gen: NAD, sitting at side of bed Heart: reg Lungs: clear, but decreased BS bilat Abd: soft; no tenderness elicited A: RUQ pain, seems to be resolving. HIDA: normal functioning GB. (CT chest for PE protocol reviewed: no sig stool in transverse P: adv diet (per hospitalists); consider laxative prn (will order); will see again prn
--- NOTE | 2017-09-04 10:14 | ECHO ---
Patient: HEVER ANNE [facility] Rec#: [id number] : 1970 Date: 09/04/2017 Age: 47y Height: 177.8 cm / 70.0 in Weight: 97.5 kg / 214.9 lbs Sex: M BSA: 2.15 Room#: 346 Admit Date#: 09/01/2017 Type: Inpatient Referring: Katia Vera NP Reading: Sheldon Guerra MD Hat Blocking Machine Operator: Deisi Rahman RDCS CC: Celestino Phoenix MD Transthoracic Echocardiogram Indication: SIRS BP: 109/84 HR: 91 Rhythm: NSR with PACs Findings History: Scleroderma, recent foot surgery in another hospital,HTN,anemia,GERD,WAM protocol. Technical Comments: The study is technically limited due to patient body habitus. Definity used to enhance images. Completed at 0857. Left Ventricle: The left ventricular chamber size is normal. Severe global hypokinesis of the left ventricle is observed. There is severely decreased left ventricular systolic function. The estimated ejection fraction is 20-25%. There is a left ventricular septal wall motion abnormality observed, possibly due to the presence of a left bundle branch block. The assessment of diastolic function is non-diagnostic. Left Atrium: The left atrial chamber size is normal. Right Ventricle: The right ventricle is mildly dilated. The right ventricular global systolic function is moderately reduced. Right Atrium: The right atrium is moderately dilated. Aortic Valve: The aortic valve is trileaflet. There is no evidence of aortic valve thickening. There is no evidence of aortic regurgitation. There is no evidence of aortic stenosis. Mitral Valve: The mitral valve leaflets are mildly thickened. There is a trace of mitral regurgitation. There is no evidence of mitral stenosis. Tricuspid Valve: The tricuspid valve leaflets are mildly thickened. There is moderate to severe tricuspid regurgitation. There is evidence of moderate pulmonary hypertension. There is no tricuspid stenosis. Pulmonic Valve: The pulmonic valve appears normal. There is no evidence of pulmonic regurgitation. There is no pulmonic stenosis. Pericardium: A pericardial fat pad is visualized. Aorta: There is no dilatation of the ascending aorta. There is no dilatation of the aortic arch. There is no dilation of the aortic root. Pulmonary Artery: The main pulmonary artery appears normal. Contrast: Definity was used to optimize study. A total of 5 ml. used. Intravenous contrast was used to enhance endocardial border definition. Summary: There was not any prior study for comparison. Conclusions Severe global hypokinesis of the left ventricle is observed. The estimated ejection fraction is 20-25%. There is a left ventricular septal wall motion abnormality observed, possibly due to the presence of a left bundle branch block. The assessment of diastolic function is non-diagnostic. The right ventricular global systolic function is moderately reduced. There is no evidence of aortic stenosis. There is a trace of mitral regurgitation. There is moderate to severe tricuspid regurgitation. There is evidence of moderate pulmonary hypertension. There is no dilatation of the ascending aorta. A pericardial fat pad is visualized. Measurements Name Value Normal Range RVIDd (AP) 2D 2.4 cm (0.9 - 2.6) RVDdMajor (2D) 4.9 cm (2.2 - 4.4) RAd ISD 4CH 5.8 cm (3.4 - 4.9) RA (A4C)W 5.2 cm (2.9 - 4.6) IVSd (2D) 1 cm (0.6 - 1) LVPWd (2D) 1 cm (0.6 - 1) LVIDd (2D) 3.8 cm (3.6 - 5.4) LVIDs (2D) 3.5 cm - LV FS (2D) 6 % (25 - 45) Aortic Annulus 2 cm (1.4 - 2.6) Ao root diameter (2D) 3.3 cm (2.1 - 3.5) Ascending Ao 3.4 cm (2.1 - 3.4) Aortic arch 2.9 cm (1.8 - 3.4) Descending Ao 0.6 cm - LA dimension (AP) 2D 3.7 cm (2.3 - 3.8) LAd ISD 4CH 5 cm (2.9 - 5.3) LA ISD 4CH W 4 cm (2.5 - 4.5) Name Value Normal Range LA ESV SP 4CH (A/L) 45 ml - LA ESV SP 2CH (A/L) 52 ml - LA ESV BP (A/L) 51 ml - LA ESV BP (A/L) index 23.94 ml/m2 - LA ESV SP 4CH (MOD) 43 ml - LA ESV SP 2CH (MOD) 51 ml - Name Value Normal Range MV E-wave Vmax 1 m/sec - MV deceleration time 130 msec - LV septal e' Vmax 0.06 m/sec - LV lateral e' Vmax 0.13 m/sec - LV E:e' septal ratio 16.67 ratio - LV E:e' lateral ratio 7.69 ratio - Name Value Normal Range AV Vmax 1.2 m/sec - AV VTI 19.3 cm - AV peak gradient 5.62 mmHg - AV mean gradient 3.17 mmHg - LVOT Vmax 0.7 m/sec - LVOT VTI 11.1 cm - LVOT peak gradient 2.1 mmHg - LVOT mean gradient 1.02 mmHg - Name Value Normal Range TR Vmax 2.9 m/sec - TR peak gradient 34 mmHg - RAP 15 mmHg - RVSP 49 mmHg - IVC diameter 3.1 cm - Name Value Normal Range PV Vmax 0.6 m/sec - PV peak gradient 1.84 mmHg -
[2017-09-04] MEDS ORDERED: Regadenoson* 0.4 MG/5 ML SYRINGE ONE (11:07)
[2017-09-04] MEDS: Ciprofloxacin IV(*) 400 MG in D5W 250 ML BAG* 160 ML IVPB SCH (12:18)
--- NOTE | 2017-09-04 12:59 | PN ---
Subjective Date of Service: 09/04/17 Interval History: Patient seen and examined at bedside. Denies fever, chills, shortness of breath , chest discomfort, N/V/D. Pt states that the right UQ and flank pain are improving. Tele: Sinus tach, rate 90-110's Family History: Unchanged from Admission Social History: Unchanged from Admission Past Medical History: Unchanged from Admission Objective Active Medications: Acetaminophen (Tylenol Tab*) 650 mg PO Q6H PRN Reason: FEVER/PAIN Docusate Sodium (Colace Cap*) 200 mg PO BID NATALIE Folic Acid (Folvite Tab*) 1 mg PO DAILY NATALIE Hydromorphone HCl (Dilaudid Inj*) 0.5 mg IV Q4H PRN Reason: PAIN Ciprofloxacin 400 mg/ Dextrose 200 mls @ 200 mls/hr IVPB Q12H NATALIE Metronidazole/Sodium Chloride (Flagyl 500 Mg Ivpb*) 500 mg in 100 mls @ 100 mls /hr IVPB Q8H NATALIE Sodium Chloride (Ns 0.9% 1000 Ml*) 1,000 mls @ 125 mls/hr IV PER RATE NATALIE Lorazepam (Ativan Inj*) 0 - [address] .PER [facility] PROT[facility] NATALIE Melatonin (Melatonin (Nf)) 3 mg PO BEDTIME PRN; Protocol Reason: Sleep Multivitamins/Minerals (Theragran/Minerals Tab*) 1 tab PO DAILY NATALIE Ondansetron HCl (Zofran Inj*) 4 mg IV Q6H PRN Reason: NAUSEA Oxycodone HCl (Roxycodone Tab*) 5 mg PO Q4H PRN Reason: PAIN Pantoprazole Sodium (Protonix Iv*) 40 mg IV DAILY NATALIE Thiamine HCl (Vitamin B-1 Tab*) 100 mg PO DAILY [facility] Vital Signs - 8 hr 09/04/17 09/04/17 07:15 07:18 Temperature 99.0 F Pulse Rate 100 Respiratory 16 18 Rate Blood Pressure 109/84 (mmHg) O2 Sat by Pulse 95 Oximetry Oxygen Devices in Use Now: None Appearance: NAD, sitting up in a chair Ears/Nose/Mouth/Throat: Mucous Membranes Moist Respiratory: Symmetrical Chest Expansion and Respiratory Effort, Clear to Auscultation Cardiovascular: NL Sounds; No Murmurs; No JVD, RRR - , tachy Abdominal: NL Sounds; No Tenderness; No Distention Skin: - - Splint to left LE. Small red/purplish spots to face and arms from scleraderma Neurological: Alert and Oriented x 3, NL Muscle Strength and Tone Lines/Tubes/Other Access: Clean, Dry and Intact Peripheral IV - site benign Nutrition: Taking PO's Result Diagrams: 09/04/17 04:45 09/03/17 05:17 Additional Lab and Data: Diagnostic Imagin09/01/17 - CHEST PA & LAT 2 VWS, IMPRESSION: EXPIRATORY EXAMINATION WITH BASILAR ATELECTASIS. SUGGEST FOLLOW-UP IF THERE ARE PERSISTENT CHEST COMPLAINTS. 09/01/17 - US GALL BLADDER, IMPRESSION: 1. Hepatomegaly. 2. Equivocal slight prominence of the intrahepatic bile ducts at the LEFT hepatic lobe. Negative for extrahepatic biliary dilatation. 3. Mild gallbladder wall thickening without visualized stones or biliary sludge. Negative for pericholecystic fluid. Positive for sonographic Mckeon's sign. The gallbladder wall thickening is nonspecific in setting of hepatomegaly as it may reflect sequela of hepatic disease. 4. Negative for ascites. 5. Negative for obstructive uropathy of the RIGHT kidney. 09/01/17 - CTA CHEST, IMPRESSION: 1. Negative for pulmonary embolism. 2. Mediastinal and RIGHT hilar lymphadenopathy. 3. Mild bibasilar subsegmental atelectasis. Trace RIGHT pleural effusion. Negative for alveolar consolidation concerning for pneumonia or presence of a suspicious focal pulmonary lesion. 4. Cardiomegaly. Negative for pericardial effusion. 09/04/17 - Transthoracic Echocardiogram, Conclusions: Severe global hypokinesis of the left ventricle is observed. The estimated ejection fraction is 20-25%. There is a left ventricular septal wall motion abnormality observed, possibly due to the presence of a left bundle branch block. The assessment of diastolic function is non-diagnostic. The right ventricular global systolic function is moderately reduced. There is no evidence of aortic stenosis. There is a trace of mitral regurgitation. There is moderate to severe tricuspid regurgitation. There is evidence of moderate pulmonary hypertension. There is no dilatation of the ascending aorta. A pericardial fat pad is visualized. Assess/Plan/Problems-Billing Assessment: Mr. Rehman is a 47 yo male with PMH significant for scleraderma, chronic leukocytosis, HTN, anemia, GERD, s/p splenectomy, and ETOH abuse who presented to the emergency room with complaints of right upper abdominal pain. - Patient Problems (1) RUQ abdominal pain Code(s): R10.11 - RIGHT UPPER QUADRANT PAIN SNOMED Code(s): 268175386 Comment: - Meeting SIRS criteria on admission with tachycardia, leukocytosis, tachypnea - Continues to have tachycardia and leukocytosis. Tachypnea has resolved - Afebrile - General Surgery consut, input appreciated - HIDA scan, no significant findings - Blood cultures, no growth day 2 - Work-up negative for possible acalculus cholecystitis vs cholangitis - Discontinue Cipro and Flagyl and IVFs - Continue supportive care and pain medication (2) Cardiomyopathy Code(s): I42.9 - CARDIOMYOPATHY, UNSPECIFIED SNOMED Code(s): 79371972 Comment: - Unclear cause, ? alcoholic cardiomyopathy - Echo - EF 50-55% in 12/2014, now 20-25% - Cardiology consult pending - Strict I+O's and daily weights (3) Shortness of breath Code(s): R06.02 - SHORTNESS OF BREATH SNOMED Code(s): 222025699 Comment: - Pt states is improved - D dimer elevated and Chest CTA negative for PE - Suspect secondary to HF (4) Chest pain Code(s): R07.9 - CHEST PAIN, UNSPECIFIED SNOMED Code(s): 00482077 Comment: - Improved when sitting up, Pt describes pain as a tightness. With associated mild shortness of breath - Pt states that shortness of breath and chest discomfort has mostly resolved - No change in pain with palpation - EKG - Sinus tach with 1st degree AVB, LBBB. - Differential dx - Pleurisy vs pericarditis vs cardiac - Troponin 0.03 x3 and 0.02 - Echo - see reports, EF now 25% down from 2015 - Chemical stress test this AM, report pending (5) Status post left foot surgery Code(s): Z98.890 - OTHER SPECIFIED POSTPROCEDURAL STATES SNOMED Code(s): 332580267 Comment: - Now with increased leukocytosis (? acute on chronic vs chronic) and mild elevated CRP - Obtain records from [facility] - S/P surgery with Dr. Rd Olea on August 24 - CRP increased - Ortho consult, input appreciated. No sign of infection - Follow-up with Dr. Olea as previously planned (6) Mediastinal lymphadenopathy Code(s): R59.0 - LOCALIZED ENLARGED LYMPH NODES SNOMED Code(s): 12378772 Comment: - Unclear etiology, ? neoplasm vs infection - Will need to follow up with PCP at discharge (7) Atelectasis Comment: - Encourage IS use (8) Alcohol abuse Code(s): F10.10 - ALCOHOL ABUSE, UNCOMPLICATED SNOMED Code(s): 79381378 Comment: - WAM score 2-5 - Continue WAM protocol for now (9) Leukocytosis Code(s): D72.829 - ELEVATED WHITE BLOOD CELL COUNT, UNSPECIFIED SNOMED Code(s) : 082111409 Comment: - Chronic - Continue to monitor (10) HTN (hypertension) Code(s): I10 - ESSENTIAL (PRIMARY) HYPERTENSION SNOMED Code(s): 21196470 Comment: - SBP 100-120's - Continue Lisinopril (11) GERD (gastroesophageal reflux disease) Code(s): K21.9 - GASTRO-ESOPHAGEAL REFLUX DISEASE WITHOUT ESOPHAGITIS SNOMED Code(s): 636006613 Comment: - Continue omeprazole (12) Hx of splenectomy Code(s): Z90.81 - ACQUIRED ABSENCE OF SPLEEN SNOMED Code(s): 752703520 Comment: - Noted (13) Scleroderma Code(s): M34.9 - SYSTEMIC SCLEROSIS, UNSPECIFIED SNOMED Code(s): 83590131 Comment: - History noted (14) DVT prophylaxis Code(s): IKF7366 - SNOMED Code(s): 124663814 Comment: - SQ heparin and SCDs (15) Full code status Code(s): Z78.9 - OTHER SPECIFIED HEALTH STATUS SNOMED Code(s): 929640193 Status and Disposition: Inpatient. Discharge to home when medically stable.
--- NOTE | 2017-09-04 13:34 | RAD ---
Edited for charges. INDICATION: Chest pain. New LEFT bundle branch block. Hypertension, elevated cholesterol, obesity. COMPARISON: No relevant prior exams available on the [facility] PACS for comparison. TECHNIQUE: 10.200 mCi of Tc-99m Myoview were administered IV. SPECT images of the heart were obtained. Later on the same day. Under the direction of Dr. Orona, the patient was given an IV injection of a pharmacologic stress agent. Subsequently, the patient was given an IV injection of 25.300 mCi Tc-99m Myoview. SPECT images of the heart were obtained and a gated wall motion study was performed. FINDINGS: CT images are remarkable for RIGHT large and LEFT small dependent pleural effusions with proportional atelectasis grossly new compared with September 01, 2017 exam. Gated wall motion images were obtained at stress and demonstrate global hypokinesia. The calculated left ventricular ejection fraction is 33 % at stress. Estimated LEFT ventricular end diastolic volume is 135 mL. TID 1.02. Diaphragmatic attenuation noted. Based on review of the attenuation corrected and non corrected images there is suggestion of a small fixed perfusion defect involving the apex and apical inferolateral segment which may reflect thinning of the myocardium associated with dilated cardiomyopathy or infarct. No compelling stress-induced ischemia evident. IMPRESSION: 1. Dilated LEFT ventricle with severely abnormal LEFT ventricular function. Estimated LEFT ventricular ejection fraction is 33% at stress. 2. Small fixed perfusion defect involving the apex and apical inferolateral segment which may reflect thinning of the myocardium associated with dilated cardiomyopathy or infarct. 3. No compelling evidence for stress-induced ischemia. ASSESSMENT: High risk based on nuclear portion due to severe LEFT ventricular dysfunction at stress. Based on imaging criteria from ACC/AHA 2002 Guideline Update for the Management of Patients With Chronic Stable Angina Table 23. Noninvasive Risk Stratification. MTDD
[2017-09-04] MEDS ORDERED: Diazepam TAB(*) 5 MG PO ONE (14:28)
[2017-09-04] MEDS ORDERED: diPHENhydraMINE PO* 25 MG PO ONE (14:28)
[2017-09-04] MEDS: Carvedilol TAB* 3.125 MG PO SCH (20:20)
--- NOTE | 2017-09-04 22:15 | CONS ---
CC: Dr. Phoenix * CARDIOLOGY CONSULTATION REPORT: DATE OF CONSULT: 09/04/17 INDICATION FOR CONSULT: Cardiomyopathy. HISTORY OF PRESENT ILLNESS: The patient is a 47-year-old gentleman with a history of scleroderma, history of splenectomy in the past, who was admitted to the hospital with right upper quadrant pain. He has since been ruled out for a cholecystitis and pulmonary embolism. The patient had an echocardiogram today which showed an ejection fraction of 25% to 30%. He had a septal asynchrony secondary to a left bundle branch block. In speaking with the patient, he really describes no cardiac symptoms over the last 4 to 6 weeks. He denied any shortness of breath. He denied any chest pain. He denied any palpitations. No lightheadedness, dizziness, or syncope. The patient states that he has some mild edema in his lower extremities at the end of a work day, but he had normal fluid status in the mornings with no evidence of lower extremity edema. PAST MEDICAL HISTORY: Significant for scleroderma, chronic leukocytosis, hypertension, anemia, splenectomy. OUTPATIENT MEDICATIONS: 1. Lisinopril 10 mg a day. 2. Hydrocodone as directed. 3. Omeprazole 20 mg a day. ALLERGIES: To HYDROCORTISONE and SULFA MEDICATIONS. FAMILY HISTORY: No family history of early coronary artery disease or cardiac arrhythmias. SOCIAL HISTORY: The patient denies tobacco use. He does admit to drinking 25 to 30 beers a week. He is single. He has no children. He lives with his parents. PHYSICAL EXAM: Height is 5 feet and 11 inches, weight 215 pounds. Temperature 97.4, heart rate is 100, blood pressure 130/94, respiratory rate is 18, oxygen saturation 98% on room air. Sclerae anicteric. Oropharynx is pink without erythema. Carotids are 2+ without bruits. JVD is normal. Thyroid is normal. Cardiac Exam: S1, S2 without any murmurs, rubs, or gallops. PMI is normal. Lungs are clear to auscultation bilaterally. There is no dullness to percussion. Abdomen is soft, nontender, nondistended with normoactive bowel sounds. Extremities show minimal edema. He has 2+ pulses throughout. The patient is awake, alert, and oriented. He moves all 4 extremities equally. DIAGNOSTIC STUDIES: EKG demonstrates normal sinus rhythm, sinus tachycardia. There is a left bundle branch block. I have no old EKGs for comparison. IMPRESSION AND PLAN: This is a 47-year-old gentleman with a history of splenectomy, history of scleroderma, who was admitted to the hospital with right upper quadrant pain. His pain is subsequently resolved. I do not have a good explanation for his elevated right upper quadrant pain. However, his echocardiogram shows severe left ventricular dysfunction with ejection fraction of 25% to 30% with no significant valvular abnormalities. I had a long discussion with the patient and his parents regarding his diagnosis. The patient appears to have nonischemic cardiomyopathy; however, I think the recommendation is that the patient undergo cardiac catheterization for more definitive evaluation of his coronary arteries. The patient will be started on beta-blockers, LEOLA inhibitors, spironolactone for his cardiomyopathy. Further recommendations pending results of his testing. [id number]/CPS #: [id number] MTDD
[2017-09-05] MEDS ORDERED: NS 0.9% 1000 ML* 1,000 ML IV SCH (00:01)
[2017-09-05 05:58] LABS: ABS Basophils 0.1 10^3/ul (0-0.2); ABS Eosinophils 0.2 10^3/ul (0-0.6); ABS Lymphocytes 1.8 10^3/ul (1.0-4.8); ABS Monocytes 1.1 10^3/ul (0-0.8); ABS Neutrophils 9.7 10^3/ul (1.5-7.7); ABS Nucleated RBC 0 10^3/ul; Eosinophil % 1.6 % (0-6); Hematocrit 39 % (42-52); Hemoglobin 12.8 g/dl (14.0-18.0); Lymphocyte % 13.8 % (25-47); Mean Corpuscular HGB Conc 33 g/dl (31-36); Mean Corpuscular Hemoglobin 26 pg (27-31); Mean Corpuscular Volume 79 fL (80-94); Mean Platelet Volume 9 um3 (7.4-10.4); Nucleated Red Blood Cells % 0; Platelet Count 289 10^3/ul (150-450); Red Blood Count 4.96 10^6/ul (4.0-5.4); Red Cell Distribution Width 17 % (10.5-15); White Blood Count 12.9 10^3/ul (3.5-10.8)
--- NOTE | 2017-09-05 06:32 | PN ---
Progress Note - Progress Note Date of Service: 09/05/17 Note: Called for patient wanting to leave AMA this am. States he hasn't slept and is tired of getting poked and prodded. Doesn't want to stay for cath. After discussing risks of leaving AMA including , he is going to think about it. Paperwork is filled out to leave AMA in case he does decide. Patient has capacity to make an informed decision to leave AMA.
[2017-09-05] MEDS: Spironolactone TAB* 25 MG PO SCH (07:26)
[2017-09-05] MEDS: Pantoprazole IV* 40 MG IV SCH (07:26)
[2017-09-05] MEDS: Docusate CAP* 100 MG PO SCH ×3 (07:26→20:24)
[2017-09-05] MEDS: Lisinopril TAB* 5 MG PO SCH (07:26)
[2017-09-05] MEDS: Multivitamins/Minerals TAB PO SCH (07:26)
[2017-09-05] MEDS: Folic Acid TAB* 1 MG PO SCH (07:26)
[2017-09-05] MEDS: oxyCODONE TAB* 5 MG TAB PO PRN (07:26)
[2017-09-05] MEDS: HYDROmorphone INJ* 2 MG/ML CARPUJECT SYRINGE IV PRN (07:27)
[2017-09-05] MEDS: Thiamine TAB* 100 MG TAB PO SCH (07:27)
[2017-09-05] MEDS: Carvedilol TAB* 3.125 MG PO SCH ×2 (07:27→20:24)
[2017-09-05] MEDS ORDERED: Heparin(*) 1000 UNIT/ML 10 ML VIAL CATH LAB IV ONE (13:46)
[2017-09-05] MEDS ORDERED: VERAPAMIL 2.5 MG/ML 2 ML VIAL ** 5 mg/2 ml ONE (13:46)
[2017-09-05] MEDS ORDERED: Heparin 2 UNITS/ML IVPREMIX* 2,000 ML IV ONE (13:46)
[2017-09-05] MEDS ORDERED: fentaNYL* 50 MCG/ML 2 ML VIAL (100 MCG VIAL) ONE (13:46)
[2017-09-05] MEDS ORDERED: nitroGLYCERIN DRIP* 25,000 MCG/250 ML BTL ONE (13:46)
[2017-09-05] MEDS ORDERED: Lidocaine 1% INJ* 10 MG/ML 30 ML SDV ONE (13:46)
[2017-09-05] MEDS ORDERED: Midazolam* 1 MG/ML 10 ML VIAL (10 MG) ONE (13:46)
[2017-09-05] MEDS ORDERED: Iohexol 350 (CONTRAST) 200 ML MDV IV ONE (13:47)
--- NOTE | 2017-09-05 20:21 | PN ---
Subjective Date of Service: 09/05/17 Interval History: no complaints. Denies chest pain or shortness of breath. reports RUQ abd pain that has improved since admission, n/v/d. Family History: Unchanged from Admission Social History: Unchanged from Admission Past Medical History: Unchanged from Admission Objective Active Medications: Acetaminophen (Tylenol Tab*) 650 mg PO Q6H PRN PRN Reason: FEVER/PAIN Carvedilol (Coreg Tab*) 3.125 mg PO BID [facility] Last Admin: 09/05/17 07:27 Dose: 3.125 mg Docusate Sodium (Colace Cap*) 200 mg PO BID [facility] Last Admin: 09/05/17 07:29 Dose: Not Given Folic Acid (Folvite Tab*) 1 mg PO DAILY [facility] Last Admin: 09/05/17 07:26 Dose: 1 mg Hydromorphone HCl (Dilaudid Inj*) 0.5 mg IV Q4H PRN PRN Reason: PAIN Last Admin: 09/05/17 07:27 Dose: 0.5 mg Sodium Chloride (Ns 0.9% 1000 Ml*) 1,000 mls @ 75 mls/hr IV .per rate [facility] Stop: 09/05/17 21:00 Lisinopril (Prinivil Tab*) 2.5 mg PO DAILY [facility] Last Admin: 09/05/17 07:26 Dose: 2.5 mg Lorazepam (Ativan Inj*) 0 - 6 mg IV PUSH .PER [facility] PROTOCOL NATALIE PRN Reason: Protocol Melatonin (Melatonin (Nf)) 3 mg PO BEDTIME PRN; Protocol PRN Reason: Sleep Multivitamins/Minerals (Theragran/Minerals Tab*) 1 tab PO DAILY [facility] Last Admin: 09/05/17 07:26 Dose: 1 tab Ondansetron HCl (Zofran Inj*) 4 mg IV Q6H PRN PRN Reason: NAUSEA Oxycodone HCl (Roxycodone Tab*) 5 mg PO Q4H PRN PRN Reason: PAIN Last Admin: 09/05/17 07:26 Dose: 5 mg Pantoprazole Sodium (Protonix Iv*) 40 mg IV DAILY [facility] Last Admin: 09/05/17 07:26 Dose: 40 mg Spironolactone (Aldactone Tab*) 12.5 mg PO DAILY [facility] Last Admin: 09/05/17 07:26 Dose: 12.5 mg Thiamine HCl (Vitamin B-1 Tab*) 100 mg PO DAILY NATALIE Last Admin: 09/05/17 07:27 Dose: 100 mg Vital Signs - 8 hr 09/05/17 09/05/17 09/05/17 13:26 15:30 15:45 Pulse Rate 88 92 Respiratory 20 17 17 Rate Blood Pressure 110/80 112/79 (mmHg) O2 Sat by Pulse 94 93 Oximetry 09/05/17 09/05/17 09/05/17 16:00 16:15 16:30 Pulse Rate 89 90 88 Respiratory 21 17 17 Rate Blood Pressure 114/78 111/81 110/77 (mmHg) O2 Sat by Pulse 92 92 92 Oximetry 09/05/17 09/05/17 09/05/17 16:45 17:00 17:40 Pulse Rate 88 89 Respiratory 19 21 Rate Blood Pressure 109/76 112/83 142/98 (mmHg) O2 Sat by Pulse 92 93 Oximetry 09/05/17 09/05/17 09/05/17 18:00 18:10 18:30 Pulse Rate 100 99 103 Respiratory Rate Blood Pressure 124/92 (mmHg) O2 Sat by Pulse 92 92 91 Oximetry 09/05/17 09/05/17 09/05/17 19:00 19:30 20:00 Pulse Rate 102 97 97 Respiratory Rate Blood Pressure (mmHg) O2 Sat by Pulse 90 90 90 Oximetry Oxygen Devices in Use Now: None Appearance: appears comfortable resting in bed Eyes: No Scleral Icterus Ears/Nose/Mouth/Throat: Clear Oropharnyx, Mucous Membranes Moist Neck: NL Appearance and Movements; NL JVP, Trachea Midline Respiratory: Symmetrical Chest Expansion and Respiratory Effort, Clear to Auscultation Cardiovascular: NL Sounds; No Murmurs; No JVD, No Edema Abdominal: NL Sounds; No Tenderness; No Distention Extremities: No Edema, No Clubbing, Cyanosis, - - dressing intact to right foot , CMST's intact Skin: No Rash or Ulcers Neurological: Alert and Oriented x 3, NL Muscle Strength and Tone Nutrition: Taking PO's Result Diagrams: 09/05/17 05:17 09/03/17 05:17 Additional Lab and Data: Diagnostic Imagin09/01/17 - CHEST PA & LAT 2 VWS, IMPRESSION: EXPIRATORY EXAMINATION WITH BASILAR ATELECTASIS. SUGGEST FOLLOW-UP IF THERE ARE PERSISTENT CHEST COMPLAINTS. 09/01/17 - US GALL BLADDER, IMPRESSION: 1. Hepatomegaly. 2. Equivocal slight prominence of the intrahepatic bile ducts at the LEFT hepatic lobe. Negative for extrahepatic biliary dilatation. 3. Mild gallbladder wall thickening without visualized stones or biliary sludge. Negative for pericholecystic fluid. Positive for sonographic Mckeon's sign. The gallbladder wall thickening is nonspecific in setting of hepatomegaly as it may reflect sequela of hepatic disease. 4. Negative for ascites. 5. Negative for obstructive uropathy of the RIGHT kidney. 09/01/17 - CTA CHEST, IMPRESSION: 1. Negative for pulmonary embolism. 2. Mediastinal and RIGHT hilar lymphadenopathy. 3. Mild bibasilar subsegmental atelectasis. Trace RIGHT pleural effusion. Negative for alveolar consolidation concerning for pneumonia or presence of a suspicious focal pulmonary lesion. 4. Cardiomegaly. Negative for pericardial effusion. 09/04/17 - Transthoracic Echocardiogram, Conclusions: Severe global hypokinesis of the left ventricle is observed. The estimated ejection fraction is 20-25%. There is a left ventricular septal wall motion abnormality observed, possibly due to the presence of a left bundle branch block. The assessment of diastolic function is non-diagnostic. The right ventricular global systolic function is moderately reduced. There is no evidence of aortic stenosis. There is a trace of mitral regurgitation. There is moderate to severe tricuspid regurgitation. There is evidence of moderate pulmonary hypertension. There is no dilatation of the ascending aorta. A pericardial fat pad is visualized. Assess/Plan/Problems-Billing Assessment: Mr. Rehman is a 47 yo male with PMH significant for scleraderma, chronic leukocytosis, HTN, anemia, GERD, s/p splenectomy, and ETOH abuse who presented to the emergency room with complaints of right upper abdominal pain. - Patient Problems (1) Alcohol abuse Status: Acute Code(s): F10.10 - ALCOHOL ABUSE, UNCOMPLICATED SNOMED Code(s) : 41716774 Comment: - WAM score 1will discharge home (2) Cardiomyopathy Status: Acute Code(s): I42.9 - CARDIOMYOPATHY, UNSPECIFIED SNOMED Code(s): 74494813 Comment: - Unclear cause, ? alcoholic cardiomyopathy - Echo - EF 50-55% in 12/2014, now 20-25% - Cardiology consulted - Strict I+O's and daily weights ~ cardiac cath yesterday ~ clear no blockages Will continueon lisinopril, aldactone, and coreg Patient was advised to refrain from drinking alcohol (3) Chest pain Status: Acute Code(s): R07.9 - CHEST PAIN, UNSPECIFIED SNOMED Code(s): 74894744 Comment: - Echo - see reports, EF now 25% down from 2015 - Chemical stress test this AM, high risk ~ Cardiac cath today~ clear no blockages ~ will maximize meds Lisnopril to 5 mg po daily, sweetie, (4) RUQ abdominal pain Status: Acute Code(s): R10.11 - RIGHT UPPER QUADRANT PAIN SNOMED Code(s): 681550560 Comment: HIDA scan ~ negative Patient reports that pain is improved only mild pain now. Will contiue supportive care and pain medications ~ suspect this could be related to his right pleural effusion causing irriation and pain. ~ offer to do CT scan of ABD and patient refused~ stating that he feels the pain is better (5) Status post left foot surgery Status: Acute Code(s): Z98.890 - OTHER SPECIFIED POSTPROCEDURAL STATES SNOMED Code(s): 474788851 Comment: - Now with increased leukocytosis (? acute on chronic vs chronic) ~ patient reports that he chronic has elevated WBC between 14 to 16 thousand from his scleraderma elevated CRP - S/P surgery with Dr. Rd Olea on August 24 - Ortho consult, input appreciated. No sign of infection~ new dressing applied left foot, suture intact, redness unchanged at the base of the fifth toe from the 09/03/17 when seen by Ortho redness remain well within the outlined margin. no drainage, no warmth to the area. surigcal incision healing well. - Follow-up with Dr. Olea as previously planned (6) GERD (gastroesophageal reflux disease) Status: Chronic Code(s): K21.9 - GASTRO-ESOPHAGEAL REFLUX DISEASE WITHOUT ESOPHAGITIS SNOMED Code(s): 736190926 Comment: - Continue omeprazole (7) HTN (hypertension) Status: Chronic Code(s): I10 - ESSENTIAL (PRIMARY) HYPERTENSION SNOMED Code( s): 89510094 Comment: - SBP 110s-140's - Continue Lisinopril (8) Scleroderma Status: Chronic Code(s): M34.9 - SYSTEMIC SCLEROSIS, UNSPECIFIED SNOMED Code (s): 42622382 Comment: - History noted ~ states that he has a chronic elevated WBC's in the 14 to 16 thousand range (9) DVT prophylaxis Status: Acute Code(s): JLA6099 - SNOMED Code(s): 627556673 Comment: - SQ heparin and SCDs (10) Full code status Status: Acute Code(s): Z78.9 - OTHER SPECIFIED HEALTH STATUS SNOMED Code(s) : 773795430 Status and Disposition: Inpatient. Discharge to home in AM
[2017-09-06 07:29] VITALS: BP 127/85
[2017-09-06] MEDS: Lisinopril TAB* 5 MG PO SCH (09:17)
[2017-09-06] MEDS: Thiamine TAB* 100 MG TAB PO SCH (09:17)
[2017-09-06] MEDS: Multivitamins/Minerals TAB PO SCH (09:18)
[2017-09-06] MEDS: Carvedilol TAB* 3.125 MG PO SCH (09:18)
[2017-09-06] MEDS: Folic Acid TAB* 1 MG PO SCH (09:18)
[2017-09-06] MEDS: Spironolactone TAB* 25 MG PO SCH (09:18)
[2017-09-06] MEDS: Pantoprazole IV* 40 MG IV SCH (09:18)
[2017-09-06] MEDS: Docusate CAP* 100 MG PO SCH (09:19)
--- NOTE | 2017-09-06 10:22 | PN ---
Subjective Date of Service: 09/06/17 - CC: RUQ pain and SOB Interval History: The patient's RUQ discomfort and breathing have improved. Per patient no change in his routine post op, usual diet and EtOH intake. He states when he drinks he drinks (2-3 x/week) and his father stated he eats lewis for breakfast regularly. Medications Active Medications: Acetaminophen (Tylenol Tab*) 650 mg PO Q6H PRN PRN Reason: FEVER/PAIN Carvedilol (Coreg Tab*) 3.125 mg PO BID [facility] Last Admin: 09/06/17 09:18 Dose: 3.125 mg Docusate Sodium (Colace Cap*) 200 mg PO BID [facility] Last Admin: 09/06/17 09:19 Dose: Not Given Folic Acid (Folvite Tab*) 1 mg PO DAILY [facility] Last Admin: 09/06/17 09:18 Dose: 1 mg Hydromorphone HCl (Dilaudid Inj*) 0.5 mg IV Q4H PRN PRN Reason: PAIN Last Admin: 09/05/17 07:27 Dose: 0.5 mg Lisinopril (Prinivil Tab*) 2.5 mg PO DAILY [facility] Last Admin: 09/06/17 09:17 Dose: 2.5 mg Lorazepam (Ativan Inj*) 0 - 6 mg IV PUSH .PER [facility] PROTOCOL NATALIE PRN Reason: Protocol Melatonin (Melatonin (Nf)) 3 mg PO BEDTIME PRN; Protocol PRN Reason: Sleep Multivitamins/Minerals (Theragran/Minerals Tab*) 1 tab PO DAILY [facility] Last Admin: 09/06/17 09:18 Dose: 1 tab Ondansetron HCl (Zofran Inj*) 4 mg IV Q6H PRN PRN Reason: NAUSEA Oxycodone HCl (Roxycodone Tab*) 5 mg PO Q4H PRN PRN Reason: PAIN Last Admin: 09/05/17 07:26 Dose: 5 mg Pantoprazole Sodium (Protonix Iv*) 40 mg IV DAILY [facility] Last Admin: 09/06/17 09:18 Dose: 40 mg Spironolactone (Aldactone Tab*) 12.5 mg PO DAILY [facility] Last Admin: 09/06/17 09:18 Dose: 12.5 mg Thiamine HCl (Vitamin B-1 Tab*) 100 mg PO DAILY [facility] Last Admin: 09/06/17 09:17 Dose: 100 mg Objective Vital Signs: Temp Pulse Resp BP Pulse Ox 97.7 F 95 18 127/85 96 09/06/17 03:13 09/06/17 07:12 09/06/17 07:12 09/06/17 07:12 09/06/17 07:12 Oxygen Devices in Use Now: None Appearance: centripitally obese middle aged gentleman, seated, his Mother putting his jeans on for him. Eyes: No Scleral Icterus, PERRLA Ears/Nose/Mouth/Throat: Clear Oropharnyx, Mucous Membranes Moist Neck: NL Appearance and Movements; NL JVP, Trachea Midline, No Thyroid Enlargement, Masses Respiratory: Symmetrical Chest Expansion and Respiratory Effort - distant breathsounds, clear, some guarding for deep breathing. Cardiovascular: NL Sounds; No Murmurs; No JVD, RRR Abdominal: - - rotund, active bowel sounds. Non tender in sitting position. Extremities: No Edema, No Clubbing, Cyanosis Skin: No Rash or Ulcers Neurological: Alert and Oriented x 3 - gait abnormal from foot surgery. Laboratory Results: 09/05/17 05:17 09/03/17 05:17 INR (Anticoag Therapy) 1.18 (0.77-1.02) H 09/01/17 15:47 Total Bilirubin 1.60 mg/dL (0.2-1.0) H 09/03/17 05:17 Direct Bilirubin 0.40 mg/dL (0.03-0.18) H 09/02/17 05:26 Indirect Bilirubin 1.1 mg/dL (0.3-1.0) H 09/02/17 05:26 AST 19 U/L (13-39) 09/03/17 05:17 ALT 12 U/L (7-52) 09/03/17 05:17 Alkaline Phosphatase 148 U/L (34-104) H 09/03/17 05:17 B-Natriuretic Peptide 271 pg/mL (-100) H 09/01/17 15:47 Total Protein 7.0 g/dL (6.4-8.9) 09/03/17 05:17 Albumin 3.6 g/dL (3.2-5.2) 09/03/17 05:17 Globulin 3.4 g/dL (2-4) 09/03/17 05:17 Albumin/Globulin Ratio 1.1 (1-3) 09/03/17 05:17 09/03/17 05:17 Troponin I 0.02 Diagnostic Imaging: Echo 09/03/17: EF 20-25%, mod-severe TR, PA pr 49 mmHg. Cath 09/05/17: normal C's per verbal report Dr. Guerra. EKG Data: Monitor: NSR Assessment/Plan 47 yo male who presented a week after foot surgery with RUQ pain and found to have a severe non ischemic CM, significant tricuspid insufficiency and moderate elevation PA pressure, the CM is possibly due to his LBBB, possible contribution from alcohol. Acute decompensation could be related to surgury/IV fluid, diet. CM: Continue Coreg, lisinopril and aldactone. Option of increasing lisinpril to 5 or 10 mg daily on discharge with further titration as an outpatient. Follow up with Dr. Guerra. custodial, may be a candidate for PLEATER device with LBBB if EF doesn't respond to medical management. I personally advised pt to stop EtOH and minimize salt in diet as well as NSAID's.
--- NOTE | 2017-09-06 18:21 | CATH ---
CARDIAC CATHETERIZATION: DATE OF PROCEDURE: 09/05/17 - ROOM #431 PROCEDURE: 1. Cardiac catheterization including coronary angiography. 2. Left heart catheterization. 3. Left ventriculography. INDICATION: Cardiomyopathy, congestive heart failure. The patient is a 47-year-old gentleman without significant past medical history who was brought to the emergency room because of severe right upper quadrant pain. The patient was fully evaluated for gallstones and cholecystitis as well as pulmonary embolism all of that were unremarkable. Ultimately he got a echocardiogram which showed severe LV dysfunction, ejection fraction of 25% with left bundle branch block. I do not have a obvious cause for his cardiomyopathy. Cardiac catheterization was recommended to evaluate coronary artery disease. DESCRIPTION OF PROCEDURE: The patient was brought to the procedure room in a fasting state. Informed consent was obtained prior to the procedure. All labs have been reviewed. The patient was placed supine on the catheterization table. His right radial area were cleaned and draped in usual fashion; 1% lidocaine was used for local anesthesia. Using a Seldinger technique, the radial artery was entered and a guidewire was placed. Over the guidewire, a 5 [place]uran hydrophilic sheath was placed in the right radial artery. The patient underwent left ventriculogram, coronary angiography using a 5-Honduran pigtail catheter and a 5-H[place]uran [employer] TIG catheter. At the end of the procedure, all sheaths and catheters removed. The patient tolerated the procedure well with no complications. A total of 70 cc of Omnipaque dye was used. A total of 3.4 minutes of fluoro time was used. FINDINGS: HEMODYNAMICS: Central aortic blood pressure 108/73 with a mean of 89, left ventricular pressure of 106/10 with an end-diastolic pressure of 21. LEFT VENTRICULOGRAM: Left ventricle was normal in size. Overall systolic function of left ventricle was severely reduced. Estimated ejection fraction 20 to 25%. There is global hypokinesis. There is no mitral regurgitation. Aortic valve and the ascending aorta were normal. CORONARY ARTERIES: 1. Left main artery: The left main was normal in size. It bifurcated into the LAD and circumflex. There is no evidence of stenosis. 2. Left anterior descending artery: LAD was normal in size. It gave off 2 diagonal vessels. There is no evidence of stenosis. 3. Left circumflex artery: The circumflex artery was normal in size. It gave off 3 obtuse marginal branches. There was no evidence of stenosis. 4. Right coronary artery: The right coronary artery was a large dominant vessel, giving off the PDA and posterolateral branch. There is no evidence of stenosis. IMPRESSION: 1. Severe LV dysfunction with ejection fraction of 20% to 25%. 2. Normal coronary arteries. RECOMMENDATION: The patient will continue on maximum medical therapy. I will see the patient in followup in 2 weeks. [id number]/CPS #: [id number]
--- NOTE | 2017-09-07 15:46 | DS ---
DISCHARGE SUMMARY: DATE OF ADMISSION: 09/01/17 DATE OF DISCHARGE: 09/06/17 ATTENDING PHYSICIAN: Eric Shin MD * (dictated by Ainsley Gómez NP) PRIMARY CARE PROVIDER: Celestino Phoenix MD PRIMARY DIAGNOSES: 1. Cardiomyopathy, nonischemic. 2. Chest pain. 3. Right upper quadrant abdominal pain. 4. Status post left foot surgery. SECONDARY DIAGNOSES: 1. Gastroesophageal reflux disease. 2. Hypertension. 3. Scleroderma. 4. Alcohol abuse. STUDIES COMPLETED WHILE IN THE HOSPITAL: On 09/01/17, chest PA and lateral 2 views. Radiologist's impression: Expiratory examination revealed bibasilar atelectasis, suggest followup if there is persistent chest complaints. On 09/01/17, ultrasound of gallbladder. Radiologist's impression: Hepatomegaly equivocal, slight prominence of intrahepatic bile duct at the left hepatic lobe, negative for extrahepatic biliary dilation. Mild gallbladder thickening without visualized stones or biliary sludge. Negative for pericholecystic fluid. Positive for sonographic Mckeon sign. The gall-bladder wall thickening is nonspecific in the setting of hepatomegaly as this may reflect a sequelae of hepatic disease. Negative for ascites, negative for obstructed uropathy of the right kidney. On 09/01/17, CTA of the chest. Radiologist's impression: 1. Negative for pulmonary embolism. 2. Mediastinal and right hilar lymphadenopathy. 3. Mild bibasilar segmental atelectasis, trace right pleural effusion. Negative for alveolar consolidation concerning for pneumonia or precedence of suspicious focal pulmonary lesion. 4. Cardiomegaly, negative for pericardial effusion. On 09/04/17, transthoracic echocardiogram, conclusion: Severe global hypokinesia of the left ventricle is observed. The estimated ejection fraction is 20% to 25%. The left ventricle septal wall motion abnormality observed, possibly due to the presence of the left bundle branch block. The assessment of diastolic dysfunction is nondiagnostic. The right ventricle global systolic function is moderately reduced. There is no evidence of aortic stenosis. There is trace mitral regurge. There is moderate to severe tricuspid regurge. There is no evidence of moderate pulmonary hypertension. There is evidence of moderate pulmonary hypertension. There is no dilation of the ascending aorta. A pericardial fat pad is visualized. HIDA scan from 09/02/17. Radiologist's impression: Normal examination. No evidence of acute cholecystitis or cystic duct obstruction. He had a nuclear stress test. Radiologist's impression: Dilated left ventricle with severely abnormal left ventricular function. Estimated left ventricular ejection fraction is 33% at stress. Small fixed perfusion defect involving the apex and apical inferior lateral segment, which may reflect _ of the myocardium associated with dilated cardiomyopathy or infarct. No compelling evidence of stress-induced ischemia. Assessment was high risk based on nuclear portion due to severe left ventricular dysfunction at stress. He also had a cardiac catheterization on 09/05/17; coronary arteries: 1. Left main artery: The main artery is normal in size, left bifurcated into the LAD and the circumflex. There was no evidence of stenosis. 2. Left anterior descending artery: LAD is normal size. It gave off 2 diagonal vessels. There is no evidence of stenosis. 3. Left circumflex artery: The circumflex artery is normal in size. It gave off 3 obtuse marginal branches. There is no evidence of stenosis. 4. Right coronary artery: Right coronary artery was large dominant vessel, giving off the PDA and posterior lateral branch. There is no evidence of stenosis. Impression: Severe LV dysfunction with ejection fraction of 20% to 25 %, normal coronary arteries. Recommendation: The patient should be continued on maximum medical therapy. The patient will follow up in 2 weeks. DISCHARGE MEDICATIONS: New medications: 1. Carvedilol 3.125 mg p.o. b.i.d. 2. Folic acid 1 mg p.o. daily. 3. Lisinopril 5 mg p.o. daily. 4. Multivitamin with minerals 1 p.o. daily. 5. Aldactone 12.5 mg p.o. daily. 6. Thiamine 100 mg p.o. daily. Continued home medications: 1. Omeprazole 20 mg p.o. daily. 2. Hydrocodone 1 tablet q.4 hours as needed for pain 5/325. HISTORY OF PRESENT ILLNESS AND HOSPITAL COURSE: Mr. 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 He denies any fevers, chills, sweats , nausea, vomiting or diarrhea. Denied any chest pain, shortness of breath, palpitations or any other issues. He denied any issues with constipation. Denies any exacerbation of symptoms with food or drinks. He has no prior history similar to this type of pain. While in the emergency room, he was evaluated for right upper quadrant pain. He had an ultrasound of the gallbladder, report noted above. He had a CT of the chest, which was negative for pulmonary embolism. He had a chest x-ray that was negative for pneumonia with suggestive bibasilar atelectasis. He had a gallbladder ultrasound as noted above that showed hepatomegaly. Mild gallbladder wall thickening without visualized stones or biliary sludge, negative for ascites, negative for obstructive uropathy of the right kidney. He was seen in consultation by Surgery during his hospitalization. Surgery recommended HIDA scan, which was negative. He was also seen by Dr. Anthony from Orthopedics regarding his recent left foot surgery. He was seen by Orthopedics, feeling a possible mild cellulitis to a small area arianna incisional on the left foot. He was at that time being treated with IV antibiotics. IV antibiotics that he was currently receiving were more than sufficient enough to cover any skin organisms and no further treatment would be needed. During hospitalization, he was seen by Cardiology for evaluation of his newly diagnosed cardiomyopathy. While in the hospital, he had a transthoracic echocardiogram, which showed severe left ventricular dysfunction with ejection fraction of 25% to 30% with no significant valvular abnormalities and it was recommended that he undergo a cardiac catheterization for further evaluation. He did subsequently have a cardiac catheterization during this hospitalization, which results are noted above. There was no artery stenosis or disease noted. Ejection fraction on the cardiac catheterization was 20% to 25%. It was recommended that he have medication management maximized and to follow up with Dr. Guerra in 2 weeks. On evaluation of Mr. Rehman today, he states that he is feeling better. He continues to complain of some mild right upper quad tenderness. He reports that his breathing is at baseline and would like to be discharged home. Mr. Rehman is stable for discharge to home today. Vital signs are as follows: Blood pressure 127/85, heart rate was 95, respirations 18, O2 saturation was 96% on room air, temperature was 97.7. DISCHARGE PLAN: 1. Mr. Rehman will be discharged back home with his parents. 2. Activity: As tolerated. 3. Weightbearing to left foot as directed from his foot surgeon prior to his admission. 4. Diet. He should continue on a low sodium, heart healthy diet. 5. In regards to his cardiomyopathy, he should continue lisinopril 5 mg p.o. daily, continue spironolactone 12.5 mg p.o. daily, continue Coreg 3.125 mg p.o. b.i.d. He is to follow up with Dr. Guerra in 2 weeks for further management and evaluation. The patient was advised to refrain from drinking any alcohol. 6. Leukocytosis. I suspect this is related to his scleroderma as he reports chronic elevation in his WBC's between 14,000 and 18,000. According to his past medical records since 2011, he has had elevations in his WBC's between 12.2000 to 16.7000. 7. Right upper quadrant abdominal pain. He had a HIDA scan and gallbladder ultrasound which were essentially negative for cholecystitis. At this time, I suspect that his right upper quadrant abdominal pain, lower right rib pain could be possibly related to his right pleural effusion and irritation in that area. He does report that the pain has greatly improved since his hospitalization. He was advised to follow up with his primary care doctor for further management. He was offered a CT of the abdomen and pelvis and declined that service stating that his abdominal pain was better and he wished to go home. 8. As for his status post left foot surgery, he is to follow up with his orthopedic surgeon in [place] as scheduled tomorrow for further management of his left foot and have sutures removed as advised by his orthopedic surgeon in [place]. 9. The patient was advised to return to the emergency room with any chest pain or shortness of breath or any worsening of any other symptoms. This is a summarization of his hospitalization. For further details, please see the entire medical record. TIME SPENT: Time spent on this discharge was approximately 60 minutes, greater than half the time was spent with the patient discussing his discharge plans and instructions. CONDITION AT DISCHARGE: Stable. AINSLEY MARY, FERMIN [id number]/[facility] #: [id number] MELIDA
== END 2017-09-06 11:09 | disposition home or self-care (01) | DRG 143 ==
LOC: ED 13:25 → SSU 22:33 → MEDTELE 09-04 11:25
PROVIDERS: ADMIT Hospitalist; ATTEND Internal Medicine
PROC: 4A023N7 Measurement of Cardiac Sampling and Pressure, Left Heart, Percutaneous Approach (ICD-10-PCS; 2017-09-05)
PROC: B2151ZZ Fluoroscopy of Left Heart using Low Osmolar Contrast (ICD-10-PCS; 2017-09-05)
PROC: B2111ZZ Fluoroscopy of Multiple Coronary Arteries using Low Osmolar Contrast (ICD-10-PCS; principal; 2017-09-05 13:45)
DX: J90 Pleural effusion, not elsewhere classified (principal); I42.9 Cardiomyopathy, unspecified; I27.20 Pulmonary hypertension, unspecified; I08.1 Rheumatic disorders of both mitral and tricuspid valves; L03.116 Cellulitis of left lower limb; J98.11 Atelectasis; M34.9 Systemic sclerosis, unspecified; J45.909 Unspecified asthma, uncomplicated; K21.9 Gastro-esophageal reflux disease without esophagitis; E66.9 Obesity, unspecified; I44.7 Left bundle-branch block, unspecified; D72.828 Other elevated white blood cell count; R59.0 Localized enlarged lymph nodes; F10.10 Alcohol abuse, uncomplicated; R16.0 Hepatomegaly, not elsewhere classified; I44.0 Atrioventricular block, first degree; I10 Essential (primary) hypertension; Y90.9 Presence of alcohol in blood, level not specified; D64.9 Anemia, unspecified; R07.9 Chest pain, unspecified; Z90.81 Acquired absence of spleen; Z88.2 Allergy status to sulfonamides; Z88.8 Allergy status to other drugs, medicaments and biological substances; Z82.49 Family history of ischemic heart disease and other diseases of the circulatory system; Z80.42 Family history of malignant neoplasm of prostate; Z82.69 Family history of other diseases of the musculoskeletal system and connective tissue; Z68.32 Body mass index [BMI] 32.0-32.9, adult
CPT/HCPCS: 36415; 71046; 71275; 76705; 78226; 78452; 80048; 80053; 80076; 81003; 81015; 82150; 83690; 83735; 83880; 84484; 85025; 85379; 85610; 86140; 87040; 87086; 93005; 93017; 93306; 93458; 99156; 99157; 99285; A9270-GY; A9502; A9537; C8929; J0744; J1170; J1644; J2250; J2270; J2785; J3010; J3411; J3490; Q9967